=== PATIENT | male | born 1945 | race Caucasian/White ===

== ENCOUNTER 2022-06-12 10:22 | Inpatient (IN) | payer MEDICARE, BC, SELFPAY ==
[2022-06-12] VITALS (54 sets, daily range): BP systolic 91–133; BP diastolic 57–102; PULSE 48–155; RESP 14–35; TEMP 36.3–36.5; O2SAT 92–98
--- NOTE | 2022-06-12 10:30 | DI.RAD_ITS ---
Exam(s) XR PORTABLE CHEST AP EXAM: XR PORTABLE CHEST AP CLINICAL HISTORY: chest pain. TECHNIQUE: 2D digital imaging was performed. COMPARISON: No exams were available for comparison FINDINGS: Single AP portable view. Heart size is again noted to be enlarged. The mediastinum is not widened. There is a right pleural effusion noted which is unchanged in size from 06/12/2022. This is small-mo derate size. No airspace pulmonary edema. Mild increased markings in the medial right lung base are unchanged. Accessory azygos lobe again noted. IMPRESSION: Cardiomegaly. Small-moderate size right pleural effusion is unchanged from 06/12/2022.Possibly relat ed to congestive heart failure although there does not appear to be airspace pulmonary edema. Mild i ncreased markings in the medial right lung base adjacent to the heart border again noted. Cannot exclude pathologies other than CHF here. DATA REPOSITORY: RADIATION DOSE DELIVERED:
--- NOTE | 2022-06-12 10:30 | RT.EKG_ITS ---
APPROVED REPORT Exam: Resting ECG Reason for Exam: sob Patient Location: E HR:150 bpm ECG Measurements Heart Rate 150 AXIS MD [id number] P [id number] QRSd 84 QRS 0 QT 307 T [id number] QTc 485 Conclusion Atrial fibrillation with rapid V-rate...A-rate 359
[2022-06-12 10:54] LABS: Abs Immature Grans 0.03 10^3/uL (0.0-0.06); Absolute Basophil Count 0.07 10^3/uL (0.0-0.2); Absolute Eosinophil Count 0.07 10^3/uL (0.0-0.7); Absolute Lymphocyte Count 1.56 10^3/uL (1.2-3.4); Absolute Monocyte Count 0.85 10^3/uL (0.1-0.8); Absolute Neutrophil Count 4.22 10^3/uL (1.2-6.7); HCT 47.9 % (40.0-50.0); HGB 16.1 g/dL (13.5-17.5); Immature Grans % 0.4; Lymphocytes % 22.9; MCHC 33.6 % (32.0-36.0); MCV 92 fL (80-95); MPV 10.1 fL (8.0-11.0); Monocytes % 12.5; Neutrophils % 62.2; Platelet Count 212 10^3/uL (130-400); RDW 13.3 % (11.8-14.1); RDW-SD 45.2 fL
[2022-06-12 11:16] LABS: ALT 137 U/L (16-63); AST 69 U/L (15-37); Albumin 3.4 g/dL (3.4-5.0); Alkaline Phosphatase 254 U/L (46-116); BUN 24 mg/dL (7-18); Bilirubin, Total 1.3 mg/dL (0.2-1.0); CREATININE 1.4 mg/dL (0.70-1.30); Calcium 8.9 mg/dL (8.5-10.1); Chloride 101 mmol/L (98-107); Estimated GFR 52.41 (mL/min/1.73m2); Glucose 109 mg/dL (74-106); Magnesium 1.9 mg/dL (1.8-2.4); NT-proBNP 8221 pg/mL (<300); Potassium 4.7 mmol/L (3.5-5.1); Sodium 134 mmol/L (136-145); Total Protein 7.3 g/dL (6.4-8.2)
[2022-06-12 11:18] LABS: Troponin I 71 ng/L (<or=60)
--- NOTE | 2022-06-12 11:21 | DI.VRAD_ITS ---
PROCEDURE INFORMATION: Exam: XR Chest Exam date and time: 06/12/2022 10:38 AM Age: 77 years old Clinical indication: Shortness of breath TECHNIQUE: Imaging protocol: Radiologic exam of the chest. Views: 1 view. COMPARISON: No relevant prior studies available. FINDINGS: Lungs: Mild venous congestion Pleural spaces: Small right pleural effusion Heart/Mediastinum: Cardiomegaly Bones/joints: Unremarkable. IMPRESSION: Mild congestive heart failure Dictated and Authenticated by: Odette Hernandez MD. Ordering:DENIA Almeida MD
--- NOTE | 2022-06-12 11:38 | ED.GENADUL_ITS ---
Discharge Plan Disposition Patient Disposition: [facility] INPATIENT Condition: Serious Discharge Details Clinical Impression: Atrial fibrillation with rapid ventricular response, Acute CHF (congestive heart failure) Primary Care Provider: None,None ED Provider: Juan Pablo Ortega Medical Decision Making 1135 --77-year-old male here with dyspnea on exertion and orthopnea, progressive bilateral lower extremity edema over the past 3 to 4 weeks. Patient is tachyca rdic and irregularly irregular on the satellite project site monitor which I interpreted as likely atrial fibrillation. EKG was reviewed and interpreted by me: A. fib with RVR 150 bpm, please see report. Labs reviewed: Creatinine is slightly elevated at 1.4, normal GFR, BNP is elevated at 8200 which is consistent with acute CHF exacerbation, he does have mild elevation of troponin. Plan to treat atrial fibrillation with RVR with diltiazem 50 mg IV push followed by infusion. I will initiate IV diuresis with furosemide 20 mg IV. Chest x-ray was reviewed and interpreted by radiology: Mild congestive heart failure. I called and spoke with the on-call hospitalist, Dr. Manrique, discussed ED presentation and course, he will admit the patient. Care transition at time of admission. Lab Data Lab results reviewed: Yes I reviewed the patient's lab results. Labs: Laboratory Tests Range/Units 06/12/22 06/12/22 10:45 10:45 WBC (4.4-10.8) 10^3/uL 6.80 RBC (4.36-5.78) 10^6/uL 5.20 Hgb (13.5-17.5) g/dL 16.1 Hct (40.0-50.0) % 47.9 MCV (80-95) fL 92 MCH (27.0-33.0) pg 31.0 MCHC (32.0-36.0) % 33.6 RDW (11.8-14.1) % 13.3 Plt Count (130-400) 10^3/uL 212 MPV (8.0-11.0) fL 10.1 Immature Gran % 0.4 Neutrophils % 62.2 Lymphocytes % 22.9 Monocytes % 12.5 Eosinophils % 1.0 Basophils % 1.0 Nucleated RBC % (0.0-0.3) % 0.0 Absolute Neutrophils (1.2-6.7) 10^3/uL 4.22 Absolute Lymphocytes (1.2-3.4) 10^3/uL 1.56 Absolute Monocytes (0.1-0.8) 10^3/uL 0.85 H Absolute Eosinophils (0.0-0.7) 10^3/uL 0.07 Absolute Basophils (0.0-0.2) 10^3/uL 0.07 Sodium (136-145) mmol/L 134 L Potassium (3.5-5.1) mmol/L 4.7 Chloride (98-107) mmol/L 101 Carbon Dioxide (21.0-32.0) mmol/L 22.0 Anion Gap (3-11) mmol/L 11.0 BUN (7-18) mg/dL 24 H Creatinine (0.70-1.30) mg/dL 1.4 H Est GFR (CKD-EPI 2020) (mL/min/1.73m2) 52.41 Glucose (74-106) mg/dL 109 H Calcium (8.5-10.1) mg/dL 8.9 Magnesium (1.8-2.4) mg/dL 1.9 Total Bilirubin (0.2-1.0) mg/dL 1.3 H AST (15-37) U/L 69 H ALT (16-63) U/L 137 H Alkaline Phosphatase (46-116) U/L 254 H Troponin I (<or=60) ng/L 71 H* NT-Pro-B Natriuret Pep (<300) pg/mL 8221 H Total Protein (6.4-8.2) g/dL 7.3 Albumin (3.4-5.0) g/dL 3.4 HPI General Mode of arrival: ambulatory . Date/Time Provider Initiated Documentation: 06/12/22 10:42 . Limitations to Documentation: no limitations . Information obtained by: patient . HPI Narrative: 77-year-old relatively healthy male here with chief complaint of shortness of breath. Patient notes shortness of breath with dyspnea on exertion worsening over the past 3 weeks. Symptoms are now moderate worse with any exertion. He also notes shortness of breath when lying flat at night. He states he started developed leg swelling about 4 weeks ago and this has persisted and worsened. He has no history of kidney trouble or CHF. He denies palpitations. He has no chest pain. General Stated Complaint: RespSymp TAYLOR: 2 Review of Systems All systems reviewed & are unremarkable except as noted in HPI and below Constitutional Constitutional: Denies fever(s) Cardiovascular Cardiovascular: Reports as per HPI PFSH All Active Problems (Updated 06/12/22 @ 11:43 by Juan Pablo Ortega MD) Atrial fibrillation with rapid ventricular response (Acute) Acute CHF (congestive heart failure) (Acute) Social History Smoking risk assessment performed?: No Exam Const General: cooperative and no acute distress HENMT Mouth: moist mucous membranes Eyes Conjunctivae: normal conjunctivae Sclera: normal sclerae Neck Neck: trachea midline and supple Resp Auscultation: clear to auscultation bilaterally, no rales, no rhonchi and no wheezes Cardio Rate: tachycardic Rhythm: abnormal rhythm Heart Sounds: no murmurs GI Palpation: soft, not firm, no guarding, no masses, not rigid and nontender Skin General skin exam: no rashes or lesions noted Neuro General: patient alert, patient awake, patient oriented x3 and tone normal Extrem General: edema Laterality: bilateral (2+ pitting up to the knees) Psych Appearance: grossly normal Mental Status: mental status grossly normal Speech and Movement: speech and movement normal Course Vital Signs Vital signs: Vital Signs Temperature 36.5 C 06/12/22 10:39 Pulse 145 H 06/12/22 10:39 Respiratory Rate 31 H 06/12/22 10:39 Blood Pressure 132/79 06/12/22 10:39 Pulse Oximetry 97 06/12/22 10:39 Temperature 36.5 C 06/12/22 10:39 Temperature Source Temporal Artery Scan 06/12/22 10:39 Pulse 145 H 06/12/22 10:39 Respiratory Rate 31 H 06/12/22 10:39 Blood Pressure 132/79 06/12/22 10:39 Blood Pressure Position Sitting 06/12/22 10:39 Pulse Oximetry 97 06/12/22 10:39 Oxygen Delivery Method Room Air 06/12/22 10:39 Oxygen Flow Rate 0 06/12/22 10:39 Pain Level 0 06/12/22 10:39 Lab/Test Results Lab/Test Results: Laboratory Tests Range/Units 06/12/22 06/12/22 10:45 10:45 WBC (4.4-10.8) 10^3/uL 6.80 RBC (4.36-5.78) 10^6/uL 5.20 Hgb (13.5-17.5) g/dL 16.1 Hct (40.0-50.0) % 47.9 MCV (80-95) fL 92 MCH (27.0-33.0) pg 31.0 MCHC (32.0-36.0) % 33.6 RDW (11.8-14.1) % 13.3 Plt Count (130-400) 10^3/uL 212 MPV (8.0-11.0) fL 10.1 Immature Gran % 0.4 Neutrophils % 62.2 Lymphocytes % 22.9 Monocytes % 12.5 Eosinophils % 1.0 Basophils % 1.0 Nucleated RBC % (0.0-0.3) % 0.0 Absolute Neutrophils (1.2-6.7) 10^3/uL 4.22 Absolute Lymphocytes (1.2-3.4) 10^3/uL 1.56 Absolute Monocytes (0.1-0.8) 10^3/uL 0.85 H Absolute Eosinophils (0.0-0.7) 10^3/uL 0.07 Absolute Basophils (0.0-0.2) 10^3/uL 0.07 Sodium (136-145) mmol/L 134 L Potassium (3.5-5.1) mmol/L 4.7 Chloride (98-107) mmol/L 101 Carbon Dioxide (21.0-32.0) mmol/L 22.0 Anion Gap (3-11) mmol/L 11.0 BUN (7-18) mg/dL 24 H Creatinine (0.70-1.30) mg/dL 1.4 H Est GFR (CKD-EPI 2020) (mL/min/1.73m2) 52.41 Glucose (74-106) mg/dL 109 H Calcium (8.5-10.1) mg/dL 8.9 Magnesium (1.8-2.4) mg/dL 1.9 Total Bilirubin (0.2-1.0) mg/dL 1.3 H AST (15-37) U/L 69 H ALT (16-63) U/L 137 H Alkaline Phosphatase (46-116) U/L 254 H Troponin I (<or=60) ng/L 71 H* NT-Pro-B Natriuret Pep (<300) pg/mL 8221 H Total Protein (6.4-8.2) g/dL 7.3 Albumin (3.4-5.0) g/dL 3.4 Critical Care Time Critical Care Time Critical Care Time: Yes Total Critical Care Time: 40 Attestation: I spent greater than 40 minutes addressing this patient's immediate life threats. Please see MDM section of note. This time was spent engaged in work directly related to the patient's care, exclusive of separate procedures, and failure to initiate these interventions would have likely resulted in clinically significant or life threatening deterioration in the patient's condition.
[2022-06-12] MEDS: dilTIAZem 25 MG/5 ML VIAL 15 MG IVP (11:57)
[2022-06-12] MEDS: Furosemide 20 MG/2 ML VIAL IVP (11:59)
[2022-06-12] MEDS: dilTIAZem 30 MG TAB PO (14:35)
[2022-06-12 14:42] LABS: Source Nasal/Nares
[2022-06-12 15:13] LABS: Troponin I 69 ng/L (<or=60)
[2022-06-12 15:39] LABS: COVID-19 PCR Negative (Negative)
--- NOTE | 2022-06-12 15:50 | W.PM.HP.N ---
Date of service: 06/12/22 Time of Service: 15:51 Assessment and Plan Assessment and plan (1) Atrial fibrillation with rapid ventricular response: Status: Acute Assessment and plan: No known previous history of afib. Mild troponin elevation d/t demand ischemia most likely from RVR. Responded to IV cardizem push. Now on cardizem 60mg TID. Telemetry monitoring. Echocardiogram ordered. Therapuetic lovenox. Will see if eliquis is covered by his insurance. (2) Acute CHF (congestive heart failure): Status: Acute Assessment and plan: Elevated BNP. Echocardiogram ordered. Lasix 40mg IV BID. Monitor renal function while on diuretic. Low Na diet. (3) Renal insufficiency: Status: Chronic Assessment and plan: His baseline creatinine is not known. Monitor. (4) Discharge planning issues: Status: Acute Assessment and plan: Normally would discharge with a 30 day threat monitoring analyst. However, he will be leaving for [place] where he will spend the winter. He will need to establish with a PCP there and then discuss outpt cardiac monitoring. History of Present Illness History of Present Illness Chief Complaint: Shortness of breath. Narrative: This is a 77 yo male with no chronic medical problems who does not currently have a PCP either in this area where he spends 6 months of the year or in [place] where he spends the other 6 months. He presented with c/o SOA and TOURE over the last 3 weeks. He also endorsed orthopnea. He noted bilateral lower extremity swelling appx 4 weeks prior to presentation. No palpitations, CP, cough, fever/chills. No h/o CHF, renal disease, CAD. ED work up: EKG with afib with ventricular rate into the 150's. Creatinine 1.4. BNP 8200. WBC count normal. Normal K and Mg. CXR with mild congestive changes. He was given 15mg IV diltiazem with notable decrease in HR. He was also administered 20mg IV lasix. Admitted for further monitoring and evaluation. Review of Systems All systems reviewed & are unremarkable except as noted in HPI and below PFSH All Active Problems (Updated 06/12/22 @ 16:24 by Vinicio Manrique MD) Discharge planning issues (Acute) Renal insufficiency (Chronic) Atrial fibrillation with rapid ventricular response (Acute) Acute CHF (congestive heart failure) (Acute) Social History Smoking/Tobacco Use Status: Never Smoking risk assessment performed?: Yes Drug use: Occasionally Substance use type: marijuana Details: not for the last 30 days Do you feel safe at home: Yes Do you feel safe in your relationship?: Yes Exam Narrative Exam Narrative: Pleasant, jovial male. Lying in bed. Conversant. Const General: cooperative and no acute distress Nutritional Appearance: obese Orientation: alert and oriented x3 Eyes General: appearance normal, both eyes and all related structures Sclera: sclerae normal Neck Neck: normal visual inspection, full ROM and no JVD Resp Effort & Inspection: normal respiratory effort and able to speak in complete sentences Auscultation: clear to auscultation bilaterally Cardio Rate: tachycardic Rhythm: abnormal rhythm irregularly irregular GI Palpation: soft and nontender Auscultation: normal bowel sounds Skin General skin exam: no rashes or lesions noted Neuro General: no focal motor deficits Cognition: normal cognition Speech: speech normal Extrem General: no calf tenderness and edema Laterality: bilateral (2+ from below the knees into feet. ) Psych Appearance: grossly normal Mental Status: mental status grossly normal Mood: congruent mood Affect: normal affect Results Labs Result diagrams: 06/12/22 10:45 06/12/22 10:45 Labs: Laboratory Results - last 24 hr 06/12/22 06/12/22 06/12/22 10:45 10:45 13:07 WBC 6.80 RBC 5.20 Hgb 16.1 Hct 47.9 MCV 92 MCH 31.0 MCHC 33.6 RDW 13.3 Plt Count 212 MPV 10.1 Immature Gran % 0.4 Neutrophils % 62.2 Lymphocytes % 22.9 Monocytes % 12.5 Eosinophils % 1.0 Basophils % 1.0 Nucleated RBC % 0.0 Absolute Neutrophils 4.22 Absolute Lymphocytes 1.56 Absolute Monocytes 0.85 H Absolute Eosinophils 0.07 Absolute Basophils 0.07 Sodium 134 L Potassium 4.7 Chloride 101 Carbon Dioxide 22.0 Anion Gap 11.0 BUN 24 H Creatinine 1.4 H Est GFR (CKD-EPI 2020) 52.41 Glucose 109 H Calcium 8.9 Magnesium 1.9 Total Bilirubin 1.3 H AST 69 H ALT 137 H Alkaline Phosphatase 254 H Troponin I 71 H* NT-Pro-B Natriuret Pep 8221 H Total Protein 7.3 Albumin 3.4 COVID-19 Source Nasal/Nares SARS-CoV-2 (PCR) Negative 06/12/22 14:49 WBC RBC Hgb Hct MCV MCH MCHC RDW Plt Count MPV Immature Gran % Neutrophils % Lymphocytes % Monocytes % Eosinophils % Basophils % Nucleated RBC % Absolute Neutrophils Absolute Lymphocytes Absolute Monocytes Absolute Eosinophils Absolute Basophils Sodium Potassium Chloride Carbon Dioxide Anion Gap BUN Creatinine Est GFR (CKD-EPI 2020) Glucose Calcium Magnesium Total Bilirubin AST ALT Alkaline Phosphatase Troponin I 69 H* NT-Pro-B Natriuret Pep Total Protein Albumin COVID-19 Source SARS-CoV-2 (PCR) Last Vital Signs Temp 36.3 C L 06/12/22 13:40 Pulse 113 H 06/12/22 13:40 Resp 18 06/12/22 13:40 BP 103/73 06/12/22 13:40 Pulse Ox 98 06/12/22 13:40
[2022-06-12] MEDS: Furosemide 40 MG/4 ML VIAL IVP (16:03)
[2022-06-12] MEDS: dilTIAZem 30 MG TAB 60 MG PO (20:37)
[2022-06-12] MEDS: Enoxaparin 40 MG/0.4 ML SYR SC (20:37)
[2022-06-12] MEDS: Normal Saline Flush 10 ML SYR IVP (20:38)
[2022-06-12] MEDS: Magnesium Oxide 400 MG TAB PO (22:49)
[2022-06-13] VITALS (62 sets, daily range): BP systolic 101–126; BP diastolic 73–92; PULSE 84–126; RESP 10–35; TEMP 36.5; O2SAT 97
[2022-06-13 06:51] LABS: ALT 102 U/L (16-63); AST 51 U/L (15-37); Alkaline Phosphatase 199 U/L (46-116); BUN 25 mg/dL (7-18); Bilirubin, Total 1.1 mg/dL (0.2-1.0); CREATININE 1.3 mg/dL (0.70-1.30); Calcium 8.5 mg/dL (8.5-10.1); Chloride 104 mmol/L (98-107); Estimated GFR 57.29 (mL/min/1.73m2); Glucose 96 mg/dL (74-106); Potassium 3.8 mmol/L (3.5-5.1); Sodium 140 mmol/L (136-145); Total Protein 6.4 g/dL (6.4-8.2)
[2022-06-13] MEDS: Enoxaparin 40 MG/0.4 ML SYR SC (07:49)
[2022-06-13] MEDS: Furosemide 40 MG/4 ML VIAL IVP ×2 (07:49→16:04)
[2022-06-13] MEDS: dilTIAZem CD 180 MG CAPCR PO (07:50)
--- NOTE | 2022-06-13 09:06 | INITIAL_ITS ---
- If Service Date Differs Date of service: 06/13/22 Time of Service: 09:06 Care Management Initial Assess REASON FOR HOSPITALIZATION:: Atrial fibrillation with rapid ventricular response,Acute CHF PAST MEDICAL HISTORY/PAST SURGICAL HISTORY:: All Active Problems (Updated 06/12/22 @ 16:24 by Vinicio Manrique MD). Discharge planning issues (Acute). Renal insufficiency (Chronic). Atrial fibrillation with rapid ventricular response (Acute). Acute CHF (congestive heart failure) (Acute) PREVIOUS FUNCTIONAL STATUS/SOCIAL/FAMILY SUPPORTS:: Jaylen lives in [place] with his Lisandra. He lives in [place] during the summer months and travels during the winter. He is all packed and ready to travel to [place] and is planning on leaving town as soon as he discharges. Jaylen does't have a PCP locally or in [place]. He is seeking guidance from his friends in [place], who recommend he Establish his medical care in [place]. CURRENT FUNCTIONAL STATUS:: Jaylen was lying in bed when CM met with him. He is alert, oriented and able to engage in conversation. He is planning on traveling to [place] after he's discharged and is unable to stay in [place] for follow up appoitments. He will let [facility] know where to send his records when he connects with providers in the area. ADVANCE DIRECTIVES:: None on file, will offer forms. Has patient been provided with info about the portal/API?: Yes Did the patient sign up for the portal?: No CODE STATUS:: Full Code INSURANCE COVERAGE / FINANCIAL ISSUES:: Medicare CURRENT HOME/COMMUNITY SERVICES/EQUIPMENT:: None PRIMARY CARE PHYSICIAN:: No local. POTENTIAL DISCHARGE NEEDS:: Recommend: Follow up with Tdoc, Outpatient ekg monitor tech and close community follow up. PATIENT/FAMILY EDUCATION NEEDS:: Review discharge instructions, limitations, medications and plan to follow up with community providers. Discuss ask me three. TRANSPORTATION:: Via Private vehicle with family. PLAN:: Jaylen will discharge home via private vehicle with his when medically ready. Per Jaylen, he is all packed and ready to travel to [place] for the winter. He will notify [facility] when he connects with a doctor in the area. Jaylen is new to [facility]. CM is checking on the cost. CM will continue to follow.
[2022-06-13] MEDS: Perflutren Lipid Microspheres 1.5 ML VIAL IVP (12:08)
[2022-06-13] MEDS: Normal Saline Flush 10 ML SYR IVP (16:05)
--- NOTE | 2022-06-13 16:09 | W.PM.PROGNOT ---
Date of Service Date of service: 06/13/22 Time of Service: 16:09 Assessment and Plan Assessment and plan (1) Atrial fibrillation with rapid ventricular response: Status: Acute Assessment and plan: No known previous history of afib. Mild troponin elevation d/t demand ischemia most likely from RVR vs recent coronary event. s/p IV cardizem, then short-acting cardizem Now on Cardizem CD; increase in AM to 240mg daily. Eliquis 5mg BID for AC. Telemetry monitoring. (2) Acute CHF (congestive heart failure): Status: Acute Assessment and plan: Echocardiogram shows an EF of 20-25% with global LV hypokinesis. Cannot r/o significant aortic stenosis. MPI nuc med stress test ordered. IV lasix. Low Na diet. (3) Renal insufficiency: Status: Chronic Assessment and plan: His baseline creatinine is not known. Creatinine on admission 1.4. Now 1.3. (4) Discharge planning issues: Status: Acute Assessment and plan: No PCP for follow up. Subjective Subjective Patient reports: no new complaints, tolerating a regular diet and afebrile; denies shortness of breath Interval history since last seen: No CP. He denies palpitations. Exam Narrative Exam Narrative: Pleasant, jovial male. Lying in bed. Conversant. Const General: cooperative and no acute distress Nutritional Appearance: obese Orientation: alert and oriented x3 Eyes General: appearance normal, both eyes and all related structures Sclera: sclerae normal Neck Neck: normal visual inspection, full ROM and no JVD Resp Effort & Inspection: normal respiratory effort and able to speak in complete sentences Auscultation: clear to auscultation bilaterally Cardio Rate: tachycardic Rhythm: abnormal rhythm irregularly irregular GI Palpation: soft and nontender Auscultation: normal bowel sounds Skin General skin exam: no rashes or lesions noted Neuro General: no focal motor deficits Cognition: normal cognition Speech: speech normal Extrem General: no calf tenderness and edema Laterality: bilateral (2+ from below the knees into feet. ) Psych Appearance: grossly normal Mental Status: mental status grossly normal Mood: congruent mood Affect: normal affect Objective Last Vital Signs Temp 36.5 C 06/13/22 04:05 Pulse 99 H 06/13/22 16:00 Resp 14 06/13/22 14:20 BP 126/83 06/13/22 16:00 Pulse Ox 97 06/13/22 16:00 Laboratory Results - last 24 hr 06/13/22 05:19 Sodium 140 Potassium 3.8 Chloride 104 Carbon Dioxide 26.0 Anion Gap 10.0 BUN 25 H Creatinine 1.3 Est GFR (CKD-EPI 2020) 57.29 Glucose 96 Calcium 8.5 Total Bilirubin 1.1 H AST 51 H ALT 102 H Alkaline Phosphatase 199 H Total Protein 6.4 Albumin 3.0 L
[2022-06-13] MEDS: dilTIAZem 60 MG TAB PO (17:09)
--- NOTE | 2022-06-13 19:15 | DI.US_ITS ---
APPROVED REPORT EXAM: Comprehensive 2D, Doppler, and color-flow Echocardiogram Patient Location: In-Patient Room/Bed: [id number] [employer] Good[employer] Tester: Juliane Aparicio RDCS (AE) Indications: New onset A Fib with CHF Echo Enhancing Agent Indication: Endocardial border delineation Agent(s) / Amount(s) Used: Definity 3.0 cc Other Information Study Quality: Adequate Conclusion Normal left ventricular wall thickness and chamber size. Estimated ejection fraction is 20 to 25%. There is global hypokinesis, no segmental wall motion abnormalities The right ventricle appears mildly dilated and hypocontractile The left atrium is mildly dilated. Right atrial size is normal Aortic valve is sclerotic. Number of leaflets cannot be accurately determined. There is no aortic r egurgitation. Peak gradient is 25, mean is 17 mmHg. There is probable severe aortic stenosis Mitral annular calcification. Moderate mitral regurgitation Normal tricuspid valve with trace to mild regurgitation. Estimated right ventricular systolic pressu re is 32 mmHg Wall motion Left Ventricle The left ventricle is normal size. Left ventricular systolic function is severely decreased. Definity microbubble contrast injection was given. There is normal left ventricular wall thickness. There is global hypokinesis of the left ventricle. There is no ventricular septal defect visualized. LVEF is 2 0-25%. Right Ventricle Right ventricle is mildly dilated. Right ventricle is moderately hypokinetic. Atria Left atrium is mildly dilated. The right atrium size is normal. The interatrial septum is intact with no evidence for an atrial septal defect. Aortic Valve Aortic valve is calcified. Number of aortic valve leaflets could not be assessed. Hemodynamically sig nificant valvular aortic stenosis cannot be excluded. Low flow-low gradien is present. Peak aortic va lve gradient is 24.5mmHg. Highest mean aortic valve gradient is 16.9mmHg. Calculated ELIZABETH by the vinay nuity equation is.91_cm2. No aortic regurgitation is present. Mitral Valve There is mitral annular calcification. No evidence of mitral valve stenosis. Moderate mitral regurgit ation. Tricuspid Valve The tricuspid valve is normal in structure. There is no tricuspid valve stenosis. Trace to mild tricu spid regurgitation. Pulmonic Valve The pulmonary valve is normal in structure. There is no pulmonic valvular stenosis. There is no pulmo niyah valvular regurgitation. Great Vessels The aortic root is normal in size. Ascending aorta is not well visualized. Aortic arch is not well vi sualized. The IVC collapses <50% with inspiration. Pericardium There is no pericardial effusion. 2D Dimensions IVSD d PLAX 1.05 cm M: 0.6-1.2 LV Vol A2C d MOD 191.3 mL LVPW d PLAX 1.03 cm M: 0.6 - 1.2 LV Vol A4C d MOD 171.9 mL LVID d PLAX 4.65 cm M: 4.2 - 5.8 LA vol/ BSA A4C s A-L 35.3 mL/m2 LVDs 4.20 cm M: 2.5 - 4.0 LA Area A4C s MOD 24.77 cm2 Ao Root d 3.02 cm M: 3.1 - 3.7 LV EF A4C MOD 26.1 % RA Area A4C 20.94 cm2 LV EF A2C MOD 28.5 % RA Vol/ BSA A4C s A-L 27.7 mL/m2 LV EF Biplane MOD 28.4 % LV EF Teichholz 19.8 % SV 51.91 mL LVEF (Osborne's) 28.43 % M: 52 - 72 SV Index 23.01 mL/m2 LV Volume 131.77 mL M: 62 - 150 LV Volume Index 58.56 mL/m2 M: 34 - 74 LV Vol Biplane MOD 182.6 mL FS 8.95 % M-Mode TAPSE 0.79 cm (M/F) >1.7 LV Diastology MV E' medial 0.077 (>0.07 m/s) MV E Vmax 1.29 (0.4-1.3 m/s) LV E/e MED 16.70 (<14) MV E' lateral 0.103 (>0.1 m/s) LV E/e LAT 12.55 (<14) MV E/E' medial 16.71 MV E/E' lateral 12.57 Aortic Valve LVOT Area 3.67 cm2 AoV Area Vmax 0.91 cm2 LVOT Vmax 0.61 m/s AoV Area/ BSA (Vmax) 0.40 cm2/m2 LVOT Mean Varinder. 0.40 m/s ELIZABETH Mean Varinder. 0.74 cm2 LVOT Peak Grad 1.5 mmHg ELIZABETH Mean Varinder. Index 0.33 cm2/m2 LVOT Mean Grad 0.7 mmHg LVOT VTI 0.092 m LVOT Diam s 2.15 cm AoV Vmax 2.48 m/s Velocity Ratio 0.24 AoV Mean Varinder. 1.97 m/s AoV Peak Grad 24.5 mmHg LVOT SV 33.59 mL AoV Mean Grad 16.9 mmHg AoV VTI 0.413 m AoV Area VTI 0.81 cm2 AoV Area/ BSA (VTI) 0.36 cm/m2 Mitral Valve MV DT 131 (160-240 msec) MR Vmax 4.40 m/s MV PHT 38 msec MR VTI 1.087 m MV Area PHT 5.79 cm2 MR Peak Grad 77.4 mmHg MV VTI 0.215 m MR Mean Grad 51.0 mmHg MV Area VTI 1.56 (4.0-6.0 cm2) Pulmonary Valve PV Vmax 0.95 (0.5-1.5 m/s) RVOT Peak Gr. 1.03 mmHg PV Peak Grad 3.6 mmHg RVOT Mean Gr. 0.50 mmHg PV Mean Grad 1.6 mmHg RVOT VTI 0.080 m PV VTI 0.150 m RVOT Vmax 0.51 m/s Tricuspid Valve TR Peak Grad 24.1 mmHg TR Vmax 2.46 m/s RA Pressure 8.00 mmHg RVSP (TR) 32.2 mmHg
[2022-06-13] MEDS: Apixaban 5 MG TAB PO (19:28)
[2022-06-13] MEDS: Magnesium Oxide 400 MG TAB PO (22:26)
[2022-06-14] VITALS (18 sets, daily range): BP systolic 111–121; BP diastolic 84–91; PULSE 74–123; RESP 17–24; TEMP 36.3–36.8; O2SAT 95–97
--- NOTE | 2022-06-14 | DI.NM_ITS ---
APPROVED REPORT Exam: Pharmacologic paired w/ low level exercise Patient Location: In-Patient Room/Bed: 221 Ordering Provider:DAMON PAGE, Contact Number: BMI: 34.57 Baseline Rhythm: Atrial Fibrillation w/ VEBS, tachycardic Indications: GLOBAL LEFT VENTRICULAR HYPOKINESIS, NEW A-FIB/CHF Medical History Medical History: Recent diagnosis of AFIB w/ RVR and Acute CHF (EF 20-25%) Cardiac Medications: No cardiac medications prior to this admission Allergies: No known drug allergies Cardiac Risk Factors: FHX of CAD, HTN, Smoking (former), Obesity Previous Cardiac Procedures: None Pretest Chest Pain Characteristics: No chest pain Exercise History: Indeterminate Physical Disabilities: None Lung Sounds: Clear to auscultation Heart Sounds: Irregular Stress Test Details Test: Pharmacologic stress was paired with low level exercise. Reason for pharmacologic stress test: physical limitation. Nuclear Acquisition: Rest Tc-99m/Stress Tc-99m 1 day Rest Isotope: Tc-99m Sestamibi. Dose: 10.0 Date: 06/14/2022 Injection Time: 0930 Stress Isotope: Tc-99m Sestamibi. Dose: 32.0 Date: 06/14/2022 Injection Time: 1120 HR Resting HR Supine: 100 bpm Max Heart Rate (APMHR): 145.002017 bpm Resting HR Standin bpm Target HR (85% APMHR): 123.157225 bpm Max HR Achieved: 162 bpm % of APMHR: 111.72 Recovery HR: 111 bpm BP Resting BP Supine: 120/72 mmHg Resting BP Standin/72 mmHg Max BP: 128/68 mmHg Recovery BP: 120/78 mmHg ECG Resting ECG: Atrial Fibrillation Ectopy: VEBs Stress ECG: Atrial Fibrillation ST Change: No significant ST segment changes noted Arrhythmia: VEBs Recovery ECG: Atrial Fibrillation Recovery ST Change: No significant ST segment changes noted Recovery Arrhythmia: VEBs Clinical Stress Symptoms: Dyspnea Rate Pressure Product: [id number] Stress ECG Conclusion 1. Resting electrocardiogram showed atrial fibrillation, poor R wave progression, left ventricular hy pertrophy with repolarization abnormalities 2. Heart rate was elevated at rest. Accelerated heart rate response to exercise. Patient achieved g reater than 100% of predicted heart rate for age 3. Testing was performed using a combination of low-level exercise and pharmacologic stress with rega denoson 4. The electrocardiographic portion of the test did not demonstrate any evidence of myocardial ischem ia 5. See MPI report Stress Test Summary STAGE HR BP SpO2 Symptoms NOTES Supine 100 120/72 Standing 113 112/72 1 min post Lexiscan injection 152 128/68 3 min post Lexiscan injection 146 124/78 6 min post Lexiscan injection 111 120/78 Patient walked on treadmill at 0.6-0.8 mph and 0% grade while receiving lexiscan injection. MPI Conclusion Myocardial perfusion does not demonstrate any areas of ischemia or prior infarction EF is 16%. LV is dilated and diffusely hypocontractile Radiologist Interpretation Radiologist Interpretation by: Jaylen Montes MD Interpretation Date/Time: 06/14/2022 16:57:51
--- NOTE | 2022-06-14 05:05 | NUR.NOTE ---
Nursing Note: Patient is resting comfortably, No apparent distress, requested that he not be awakened for vital signs overnight. Continues on Surgery Assistant. Provided information sheets on Afib/CHF/Cardizem/Eliquis/and Lasix
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
[2022-06-14] MEDS: Furosemide 40 MG/4 ML VIAL IVP (09:15)
[2022-06-14] MEDS: Aspirin 81 MG CHEW PO (09:16)
[2022-06-14] MEDS: dilTIAZem CD 120 MG CAPCR 240 MG PO (09:16)
[2022-06-14] MEDS: Apixaban 5 MG TAB PO ×2 (09:16→18:13)
[2022-06-14] MEDS: Normal Saline Flush 10 ML SYR IVP (09:17)
[2022-06-14] MEDS: Potassium Chloride 20 MEQ TABCR PO (09:27)
[2022-06-14 10:11] LABS: Anion Gap 7.7 mmol/L (3-11); BUN 21 mg/dL (7-18); CO2 31.3 mmol/L (21.0-32.0); CREATININE 1.4 mg/dL (0.70-1.30); Calcium 8.8 mg/dL (8.5-10.1); Chloride 101 mmol/L (98-107); Estimated GFR 52.41 (mL/min/1.73m2); Glucose 117 mg/dL (74-106); Potassium 3.4 mmol/L (3.5-5.1); Sodium 140 mmol/L (136-145)
[2022-06-14] MEDS: Regadenoson 0.4 MG/5 ML SYR IVP (11:01)
--- NOTE | 2022-06-14 17:35 | W.PM.DS.N ---
Date of service: 06/14/22 Time of Service: 17:36 DS: Diagnosis Discharge Diagnosis (1) Atrial fibrillation with rapid ventricular response: Status: Acute (2) Acute CHF (congestive heart failure): Status: Acute (3) Renal insufficiency: Status: Chronic (4) Discharge planning issues: Status: Deleted Discharge Plan Disposition Patient Disposition: HOME Condition: Improving Discharge Details Reason For Visit: Atrial fibrillation, CHF Admit Date/Time: 06/12/22 11:42 Admit Provider: Vinicio Manrique Attending Provider: Vinicio Manrique Primary Care Provider: None,None Hospital Course Hospital Course: This is a 77 yo male with no chronic medical problems who does not currently have a PCP either in this area where he spends 6 months of the year or in [place] where he spends the other 6 months.? He presented with c/o SOA and TOURE over the last 3 weeks.? He also endorsed orthopnea.? He noted bilateral lower extremity swelling appx 4 weeks prior to presentation. No palpitations, CP, cough, fever/chills.? No h/o CHF, renal disease, CAD. ED work up: EKG with afib with ventricular rate into the 150's. Creatinine 1.4.? BNP 8200. WBC count normal. Normal K and Mg.? CXR with mild congestive changes. He was given 15mg IV diltiazem with notable decrease in HR.? He was also administered 20mg IV lasix.? Admitted for further monitoring and evaluation. He needs to establish with a PCP in [place] where he lives during 6 months out of the years. I suggest cardiac rehab. Discuss initiating an ARB and possibly Jardiance when established with a PCP. Home Meds and New Rx's Prescriptions: No Action diltiazem HCl 360 mg capsule,extended release 24 hr 360 mg PO DAILY Qty: 90 0RF Eliquis 5 mg tablet 5 mg PO BID Qty: 180 0RF potassium chloride [Klor-Con M20] 20 mEq tablet,ER particles/crystals 20 meq PO DAILY Qty: 90 0RF torsemide 20 mg tablet 20 mg PO DAILY Qty: 90 0RF losartan 25 mg tablet 25 mg PO DAILY Qty: 90 0RF Discharge Instructions Instructions: A-fib (Atrial Fibrillation) (DC), Low-Sodium Diet (DC) Additional Instructions: Follow up within 1 week Activity:: low level activity only Equipment/Supplies:: No Equipment Needed Diet:: Heart healthy Discharge Data Discharge Date/Time-TO BE ENTERED AT DEPARTURE: 06/14/22 18:41 DS: Summary Time Spent with Patient providing and/or coordinating discharge services: Greater than 30 minutes Status at Discharge Functional status at discharge: independent ambulation Overall status at discharge: patient is progressing back to baseline Mental Status: mental status grossly normal Speech and Movement: speech and movement normal Mood: congruent mood Affect: normal affect Exam Narrative Exam Narrative: Pleasant, jovial male. Lying in bed. Conversant. Const General: cooperative and no acute distress Nutritional Appearance: obese Orientation: alert and oriented x3 Eyes General: appearance normal, both eyes and all related structures Sclera: sclerae normal Neck Neck: normal visual inspection, full ROM and no JVD Resp Effort & Inspection: normal respiratory effort and able to speak in complete sentences Auscultation: clear to auscultation bilaterally Cardio Rate: tachycardic Rhythm: abnormal rhythm irregularly irregular GI Palpation: soft and nontender Auscultation: normal bowel sounds Skin General skin exam: no rashes or lesions noted Neuro General: no focal motor deficits Cognition: normal cognition Speech: speech normal Extrem General: no calf tenderness and edema Laterality: bilateral (1+ from below the knees into feet. ) Psych Appearance: grossly normal Mental Status: mental status grossly normal Speech and Movement: speech and movement normal Mood: congruent mood Affect: normal affect DS: Data Vitals/I&O Vitals and I&O: Vital Signs Temperature 36.7 C 06/14/22 15:10 Temperature Source Temporal Artery Scan 06/14/22 15:10 Pulse 85 06/14/22 15:53 Pulse Rhythm Irregular 06/14/22 15:52 Pulse 107 H 06/14/22 16:00 Respiratory Rate 24 06/14/22 16:00 Respiratory Effort 06/14/22 15:52 Respiratory Depth Normal 06/14/22 15:52 Respiratory Pattern Tachypnea 06/14/22 15:52 Blood Pressure 121/89 06/14/22 15:16 Blood Pressure Mean 96 06/14/22 15:16 Blood Pressure Position Supine 06/12/22 16:45 Pulse Oximetry 97 06/14/22 15:16 Oxygen Delivery Method Room Air 06/14/22 08:46 Oxygen Flow Rate 0 06/14/22 08:46 Pain Level 0 06/14/22 08:46 Comment 06/14/22 01:30 Intake & Output 06/13/22 06/14/22 06/14/22 23:59 11:59 23:59 Intake Total 240 / 260 500 / 1140 640 / 1140 Output Total 900 / 4100 150 / 650 500 / 650 Balance -660 / -3840 350 / 490 140 / 490 Weight 109.4 kg Intake: Oral 240 / 240 500 / 1140 640 / 1140 Output: Urine 900 / 4100 150 / 650 500 / 650 Other: Urine Color Yellow Dark Cindy Pale Yellow Urine Appearance Clear Clear Clear Urine Odor Normal None None Comment x1, unwitnessed, unmeasured. Voided in toilet on med/surg. Not measured. Denies any urinary problems. Stool Size Moderate Stool Characteristics Soft Formed Voiding Methods Bedside Commode Data Completed and Pending Labs on day of discharge: Labs from last 24 hours 06/14/22 09:50 Sodium 140 Potassium 3.4 L Chloride 101 Carbon Dioxide 31.3 Anion Gap 7.7 BUN 21 H Creatinine 1.4 H Est GFR (CKD-EPI 2020) 52.41 Glucose 117 H Calcium 8.8 PFSH All Active Problems Renal insufficiency (Chronic) Atrial fibrillation with rapid ventricular response (Acute) Acute CHF (congestive heart failure) (Acute) Social History Smoking/Tobacco Use Status: Never Smoking risk assessment performed?: Yes Drug use: Occasionally Substance use type: marijuana Details: not for the last 30 days Do you feel safe at home: Yes Do you feel safe in your relationship?: Yes
--- NOTE | 2022-06-15 10:53 | CMDISCH_ITS ---
- If Service Date Differs Date of service: 06/15/22 Time of Service: 10:53 LACE Index Scoring Tool - Questions: Length of Stay (in days): 2 Acuity (Admit via E.D.?): Yes E.D. Visits: 1 - Answers: Total Score: 6 Risk of Readmission: Low Risk Care Management Discharge Reason for Hospitalization: Atrial fibrillation with rapid ventricular response,Acute CHF Discharge Plan: Jaylen is discharged home via private vehicle with family. RX's are printed and provided to Jaylen. Jaylen has a RX for Eliquis that was transmitted to [facility] in [place], $0 copay. Jaylen declines local Hospital Follow up appointment using T-Doc schedule. Per pt, he is packed and ready to travel to [place] and will establish care with a doctor in that area. He will let Medical Records or CM know where he would like his records sent, after he finds a provider in [place]. Patient/Family Education Needs: Review discharge instructions, limitations, medications and plan to schedule a hospital follow up in [place]. CM advised Jaylen that a follow up appointment locally using oncall provider scheduling is preferred, however Jaylen indicates that he is unable to schedule locally due to his travel schedule.
== END 2022-06-14 18:41 | disposition home or self-care (01) | DRG 309 ==
LOC: ER 13:26 → ICU 13:37
PROVIDERS: Admitting Provider Family Medicine; Emergency Provider Student in an Organized Health Care Education/Training Program; Visit Provider Family Medicine
DX: I48.91 Unspecified atrial fibrillation (principal); I24.8 Other forms of acute ischemic heart disease; I50.9 Heart failure, unspecified; N18.9 Chronic kidney disease, unspecified
CPT/HCPCS: 36415; 78452; 80048; 80053; 87635; 93005; 93306; 96374; 96375; 99284; 99285; C8929; J1650; 71045; 83735; 83880; 84484; 85025; 93010; 93017; 99223; 99233; 99239; J1940; J1941; J2785

== ENCOUNTER → 2023-05-08 19:51 | Outpatient (CLI) | payer MEDICARE, BC, SELFPAY ==
--- NOTE | 2023-05-08 09:45 | DI.RAD_ITS ---
Exam(s) XR HIP PELVIS ADULT BL EXAM: XR HIP PELVIS ADULT BL CLINICAL HISTORY: Bilateral hip pain M25.551 PAIN RT HIP M25.552 PAIN LEFT HIP. TECHNIQUE: 2D digital imaging was performed. COMPARISON: No exams were available for comparison FINDINGS: 3 views No evidence of pelvic nor hip fracture. However, there is advanced degenerative narrowing of both hi p joints with [id number] narrowing and degenerative subarticular cysts bilaterally. There is multilevel disc space narrowing in the partially visualized lumbar spine. SI joints appear unremarkable. 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 DATA REPOSITORY: RADIATION DOSE DELIVERED:
== END ==
PROVIDERS: PCP Family Medicine; Visit Provider Family Medicine
DX: M16.0 Bilateral primary osteoarthritis of hip (principal)
CPT/HCPCS: 73521

== ENCOUNTER 2025-03-25 18:11 | Inpatient (IN) | payer MEDICARE, BC, SELFPAY ==
[2025-03-25] VITALS (38 sets, daily range): BP systolic 93–125; BP diastolic 56–97; PULSE 92–156; RESP 13–25; TEMP 36.3–36.6; O2SAT 92–97
--- NOTE | 2025-03-25 18:00 | RT.EKG_ITS ---
APPROVED REPORT Exam: Resting ECG Reason for Exam: tachycardia Patient Location: E HR:139 bpm ECG Measurements Heart Rate 139 AXIS SC [id number] P [id number] QRSd 84 QRS 4 QT 315 T 132 QTc 487 Conclusion Atrial fibrillation with rapid V-rate...A-rate 388 Anterior infarct, old...Q >40mS, abnormal ST-T, V2-V5 Repolarization abnormality, prob rate related...ST dep, T neg, tachycardia
[2025-03-25 18:25] LABS: Abs Immature Grans 0.04 10^3/uL (0.0-0.06); HCT 45.0 % (40.0-50.0); HGB 15.2 g/dL (13.5-17.5); Immature Grans % 0.5 %; MCH 31.0 pg (27.0-33.0); MCHC 33.8 % (32.0-36.0); MCV 92 fL (80-95); MPV 10.1 fL (8.0-11.0); Platelet Count 246 10^3/uL (130-400); RBC 4.90 10^6/uL (4.36-5.78); RDW 13.6 % (11.8-14.1); RDW-SD 45.5 fL; WBC 8.03 10^3/uL (4.4-10.8)
--- NOTE | 2025-03-25 18:30 | RT.EKG_ITS ---
APPROVED REPORT Exam: Resting ECG Reason for Exam: afib Patient Location: E HR:91 bpm ECG Measurements Heart Rate 91 AXIS UT [id number] P [id number] QRSd 82 QRS 2 QT 394 T 124 QTc 484 Conclusion Atrial fibrillation...V-rate 74-111, irreg A-activity Anterior infarct, old...Q >40mS, abnormal ST-T, V2-V5 Nonspecific T abnormalities, lateral leads...T <-0.10mV, I aVL V5 V6 No STEMI
--- NOTE | 2025-03-25 18:30 | DI.RAD_ITS ---
Exam(s) XR PORTABLE CHEST AP EXAM: XR PORTABLE CHEST AP CLINICAL HISTORY: dyspnea TECHNIQUE: 2D digital imaging was performed. COMPARISON: CR,XR XR PORTABLE CHEST AP from 06/12/2022 FINDINGS: Exam is limited by suboptimal pulmonary inflation. Abdominal soft tissues partially obscure the lung bases. LUNGS: There is pulmonary vascular prominence and mildly increased interstitial markings which could indicate mild CHF. There is minimal blunting at the right costophrenic angle. This was seen on the previous exam and may be chronic. Azygos lobe, normal variant. HEART: Enlarged, unchanged. AORTA: Normal diameter. BONES: Unremarkable for age. Soft tissues: Unremarkable. IMPRESSION: Cardiomegaly and mild CHF. Basilar infiltrates are not excluded due to technique. DATA REPOSITORY: RADIATION DOSE DELIVERED:
[2025-03-25] MEDS: dilTIAZem 25 MG/5 ML VIAL 20 MG IVP (18:31)
--- NOTE | 2025-03-25 18:33 | W.ED.GENAD ---
Discharge Plan Disposition Patient Disposition: Admit to [facility] Condition: Stable Discharge Details Clinical Impression: Atrial fibrillation with rapid ventricular response, Elevated troponin Primary Care Provider: James Guzman ED Provider: Inocencio Martínez Home Meds and New Rx's Prescriptions: No Action diltiazem HCl 360 mg capsule,extended release 24 hr 360 mg PO DAILY Qty: 90 0RF dabigatran etexilate 150 mg capsule 150 mg PO DAILY losartan 25 mg tablet 50 mg PO DAILY HPI General Mode of arrival: EMS. Date/Time Provider Initiated Documentation: 03/25/25 18:18. Limitations to Documentation: no limitations. Information obtained by: patient. History of Present Illness 80 year old M presents to the emergency department with the chief complaint of dyspnea, tachycardia, described as moderate, Patient started experiencing this week(s) (2) and it has been constant. No relieving factors improve symptom(s), No exacerbating factors reported . Patient notes shortness of breath; denies chest pain, fever/chills, nausea/vomiting and syncope. Patient did receive the following treatments prior to arrival, none Related Data Home Medications ?Medication ?Instructions ?Recorded ?Confirmed diltiazem HCl 360 mg capsule,24 360 mg PO DAILY #90 caps 07/01/22 03/25/25 hr,extended release Held on 03/25/25. Instructions: Pt Stopped/Never Started dabigatran etexilate 150 mg capsule 150 mg PO DAILY 05/08/23 03/25/25 losartan 25 mg tablet 50 mg PO DAILY 05/08/23 03/25/25 Previous Rx's ?Medication ?Instructions ?Recorded diltiazem HCl 360 mg capsule,24 360 mg PO DAILY #90 caps 07/01/22 hr,extended release Held on 03/25/25. Instructions: Pt Stopped/Never Started Allergies Allergy/AdvReac Type Severity Reaction Status Date / Time No Known Allergies Allergy Verified 05/08/23 09:13 General Stated Complaint: SOB TAYLOR: 3 Review of Systems All systems reviewed & are unremarkable except as noted in HPI and below Constitutional Constitutional: Denies chills and Denies fever(s) Cardiovascular Cardiovascular: Reports chest pain, Reports palpitations and Denies dyspnea Respiratory Respiratory: Denies cough and Denies dyspnea Gastrointestinal Gastrointestinal: Denies abdominal pain, Denies nausea and Denies vomiting Endocrine Endocrine: Reports palpitations Exam Const General: no acute distress Orientation: alert HENMT Head: normal to inspection Ears: external ears normal General nose exam: external nose normal Mouth: moist mucous membranes Eyes General: appearance normal, both eyes and all related structures Neck Neck: normal visual inspection Resp Effort & Inspection: normal respiratory effort and able to speak in complete sentences Cardio Jugular venous pressure: no JVD Rate: tachycardic GI Palpation: soft and nontender Skin General skin exam: no rashes or lesions noted Neuro General: patient alert and patient oriented x3 Extrem General: no calf tenderness bilaterally and edema Psych Mental Status: mental status grossly normal Course Vital Signs Vital signs: Vital Signs Temperature 36.6 C 03/25/25 18:12 Pulse 146 H 03/25/25 18:12 Respiratory Rate 25 H 03/25/25 18:12 Blood Pressure 121/82 03/25/25 18:12 Pulse Oximetry 96 03/25/25 18:12 Temperature 36.6 C 03/25/25 18:24 Temperature Source Oral 03/25/25 18:24 Pulse 155 H 03/25/25 18:24 Respiratory Rate 25 H 03/25/25 18:24 Blood Pressure 121/82 03/25/25 18:24 Blood Pressure Position Sitting 03/25/25 18:24 Pulse Oximetry 96 03/25/25 18:24 Oxygen Delivery Method Room Air 03/25/25 18:24 Oxygen Flow Rate 0 03/25/25 18:12 Lab/Test Results Lab/Test Results: Laboratory Tests Range/Units 03/25/25 18:18 WBC (4.4-10.8) 10^3/uL 8.03 RBC (4.36-5.78) 10^6/uL 4.90 Hgb (13.5-17.5) g/dL 15.2 Hct (40.0-50.0) % 45.0 MCV (80-95) fL 92 MCH (27.0-33.0) pg 31.0 MCHC (32.0-36.0) % 33.8 RDW (11.8-14.1) % 13.6 Plt Count (130-400) 10^3/uL 246 MPV (8.0-11.0) fL 10.1 Immature Gran % % 0.5 Neutrophils % % 67.1 Lymphocytes % % 16.6 Monocytes % % 13.8 Eosinophils % % 1.1 Basophils % % 0.9 Nucleated RBC % (0.0-0.3) % 0.0 Absolute Neutrophils (1.2-6.7) 10^3/uL 5.39 Absolute Lymphocytes (1.2-3.4) 10^3/uL 1.33 Absolute Monocytes (0.1-0.8) 10^3/uL 1.11 H Absolute Eosinophils (0.0-0.7) 10^3/uL 0.09 Absolute Basophils (0.0-0.2) 10^3/uL 0.07 Medical Decision Making 80-year-old male with a history of A-fib on dabigatran but is no longer on diltiazem and states he is no longer on amiodarone who resides in [place] for part of the year and comes appear for few months comes in with several weeks of shortness of breath and feeling his heart beating fast and irregularly. He denies any chest pain or chest pressure, fevers, chills, vomiting, diaphoresis. He has edema of both lower extremities which he says been going on for couple weeks as well. He denies any tenderness in the calves. He has diminished lung sounds at the bases, no wheezing. No JVD. Soft nontender abdomen. He is in A-fib with RVR with rates ranging 130-150 on exam. I suspect his symptoms are related to A-fib and possibly CHF. Will treat with diltiazem and check CBC CMP and troponins and a chest x-ray and reassess. He is not anticoagulation and he has no pleuritic chest pain so I doubt PE. Patient responded well to the IV Dilts and I ordered oral 60 mg. Labs show mildly elevated troponin which I feel is rate related, will check a delta troponin. proBNP is over 20,000. He continues feels well states he feels significantly better now that his heart rate is better controlled with rates in the 90s to low 100s. He does have mildly elevated LFTs and his coags are elevated which could be from his anticoagulant but he also does have a history of alcohol use so suspect he could have either a component of alcoholic liver disease versus fatty liver given he is obese. He has no abdominal tenderness so I do not feel imaging of his abdomen acutely is indicated. Second Trop downtrending from 127 to 121. x-ray shows mild pulmonary congestion. I discussed with hospitalist and will plan for admission. Differential Diagnosis Differential Diagnosis: A-fib with RVR, electrolyte abnormality, CHF Lab Data Lab results reviewed: Yes I reviewed the patient's lab results. ECG Data Attestation: I personally reviewed and interpreted this ECG (s) as follows: Prior ECG tracings: available for review Interpretation: afib rates of 139 no stemi A-fib, rate of 91, no STEMI Critical Care Time Critical Care Time Critical Care Time: Yes Total Critical Care Time: 45 (minutes) Attestation: Time spent on lab review, hemodynamic monitoring and frequent reassessments in a patient with A-fib with RVR requiring IV diltiazem with the potential to deteriorate at any time. PFSH All Active Problems Bilateral hip pain (Acute) Renal insufficiency (Chronic) Social History Smoking/Tobacco Use Status: Never Smoking risk assessment performed?: Yes Alcohol Intake: current Alcohol Intake frequency: 0-2 drinks per day Alcohol type: wine Drug use: Occasionally Substance use type: marijuana Details: not for the last 30 days Do you feel safe at home: Yes Do you feel safe in your relationship?: Yes PAWSS Have you Been Recently Intoxicated or Drunk Within the Last 30 days?: No Have you Ever Experienced Previous Episodes of Alcohol Withdrawal?: No Have you ever Experienced Withdrawal Seizures?: No Have you ever Experienced Delirium Tremens(DT)s?: No Have you ever undergone Alcohol Rehabilitation Treatment (i.e, inpt ot outpatient treatment programs)?: No Have you ever Experienced Blackouts?: No Have you ever Combined Alcohol with other Downers within the last 90 days?: No Have you ever Combined Alcohol with any other Substance of Abuse during the last 90 days?: No Positive Blood Alcohol level on Presentation? [PCS.BAL]: No Evidence of Increased Autonomic Activity (i.e. HR>120, tremor, sweating, agitation, nausea)?: No Result: 0
[2025-03-25 18:39] LABS: INR 2.2 (0.9-1.1); PTT Activated 54.7 sec (20.6-30.2); Prothrombin Time 20.8 sec (9.1-11.1)
[2025-03-25 18:50] LABS: ALT 213 U/L (16-63); AST 211 U/L (15-37); Albumin 3.6 g/dL (3.4-5.0); Alkaline Phosphatase 223 U/L (46-116); Anion Gap 15.1 mmol/L (3-11); BUN 29 mg/dL (7-18); Bilirubin, Total 1.3 mg/dL (0.2-1.0); CO2 18.9 mmol/L (21.0-32.0); Calcium 9.3 mg/dL (8.5-10.1); Chloride 101 mmol/L (98-107); Estimated GFR 61.90 (mL/min/1.73m2); Glucose 132 mg/dL (74-106); Magnesium 2.1 mg/dL (1.8-2.4); NT-proBNP 20758 pg/mL (<300); Potassium 4.7 mmol/L (3.5-5.1); Sodium 135 mmol/L (136-145); TSH (W/Ref FT4) 2.08 uIU/mL (0.36-3.74); Total Protein 7.4 g/dL (6.4-8.2)
[2025-03-25] MEDS: Furosemide 20 MG/2 ML VIAL IVP (18:51)
[2025-03-25 18:52] LABS: Troponin I 127 ng/L (<or=76)
[2025-03-25] MEDS: dilTIAZem 60 MG TAB PO ×2 (19:09→23:56)
--- NOTE | 2025-03-25 19:41 | DI.VRAD_ITS ---
PROCEDURE INFORMATION: Exam: XR Chest Exam date and time: 03/25/2025 7:09 PM Age: 80 years old Clinical indication: Dyspnea TECHNIQUE: Imaging protocol: Radiologic exam of the chest. Views: 1 view. COMPARISON: CR XR PORTABLE CHEST AP 06/12/2022 10:38 AM FINDINGS: Tubes, catheters and devices: Cardiac leads superimposed over the chest. Lungs: Mild pulmonary venous hypertension without overt pulmonary edema. No alveolar infiltrate. Pleural spaces: No pneumothorax. No pleural fluid collection. Heart/Mediastinum: Normal heart size. Bones/joints: Spinal and shoulder degenerative changes. IMPRESSION: 1. Mild pulmonary venous hypertension without overt pulmonary edema. 2. No acute infiltrate. Dictated and Authenticated by: Claudy Abdullahi MD. Orderin Mauricio Painter MD
[2025-03-25] MEDS: Aspirin 325 MG TAB PO (20:04)
[2025-03-25 20:11] LABS: Troponin I 122 ng/L (<or=76)
--- NOTE | 2025-03-25 20:22 | HPE_ITS ---
Date of service: 03/25/25 Time of Service: 20:22 Assessment and Plan Assessment and plan (1) Paroxysmal atrial fibrillation with RVR: Start date: 03/25/25 Status: Acute Assessment and plan: This is a 80-year-old gentleman with a history of proximal atrial fibrillation and decreased left ejection fraction diagnosed in 2021 with recent cessation of medications for heart rate control now in recurrent atrial fibrillation with rapid ventricular response and evidence of CHF. His left carotid extraction had recovered with treatment of his atrial fibrillation when in sinus rhythm. He was on diuretics in the past but is not on those presently and is off diltiazem and recently amiodarone. He will be reinitiated on diltiazem orally with 60 mg every 6 hours and be reevaluated for CHF and echocardiogram in the morning. Troponins are elevated and appear to be secondary to cardiac strain from his tachycardia with patient having no ischemic changes on EKG or chest pain. Long- term he will need further evaluation at coronary artery system with planned surgery on his hips in the near future. He also should see cardiology locally. Formal consultation may not be available in the hospital. He has a full code. (2) Elevated troponin level not due myocardial infarction: Status: Acute Assessment and plan: Elevated but not trending upward by significant amount with the patient to have trending troponins hopefully to show a plateau at some point. His having better heart rate control. He also has been treated for CHF. Patient will be started on atorvastatin. (3) CHF (congestive heart failure): Start date: 03/25/25 Status: Acute Assessment and plan: Previously reduced left ventricular ejection fraction which recovered with treatment of his atrial fibrillation in the past. Update echocardiogram and continue Lasix 40 mg IV twice daily. His BNP was elevated from his previous BNP. (4) HTN (hypertension): Status: Chronic Assessment and plan: Continue losartan. Trend while on diltiazem. (5) Cirrhosis of liver: Status: Chronic Assessment and plan: Patient does drink alcohol and this may need further evaluation. He should be encouraged to stop alcohol entirely and follow-up this problem with his PCP. Trend labs while hospitalized. History of Present Illness History of Present Illness Chief Complaint: Increasing dyspnea and peripheral edema since stressful road trip. Narrative: This is a 80-year-old male patient who was first diagnosed with atrial fibrillation and decreased left ventricular ejection fraction in January 2022 at this institution. Since that time he was placed on medical therapy for atrial fibrillation and converted to sinus rhythm with medical therapy. He most recently was treated in his home town in the [facility] where he was told his left ventricular ejection fraction had improved back to normal on medical therapy and he was in sinus rhythm. He was being weaned from his medical therapy with amiodarone being weaned off and the patient holding his diltiazem recently. He had been on torsemide in the past as well and has not been on diuretics in the last months. As stated he has been having increased abdominal girth and swelling in his lower extremities over the last months since his stressful trip mig[place] a trailer from the [facility] to his summer home here in [place]. Patient does have a local PCP but did not think to report to her when he was having symptoms in January of this year. He states his trip was January 24, 2025. He did report to the ED because of his shortness of breath and edema with a fast heart rate and palpitations but no chest pain over the last 2 weeks. He was given Lasix in the ED with chest x-ray revealing slight vascular congestion but no overt pleural effusion or CHF with patient as stated having a history of a decreased left ventricular ejection fraction and CHF in the past. BNP was elevated at 20,000. He also was given IV diltiazem for his tachycardia associated with atrial fibrillation which was recurring. Patient stated he was in sinus rhythm when he was on amiodarone and weak. He may have been in atrial fibrillation since January of this year. He is on anticoagulation with Xarelto. He also has for hypertension with losartan. He did respond to IV diltiazem and oral diltiazem was continued at 60 mg every 6 hours. His heart rate was below 100 with this treatment. His troponin was slightly elevated and not trending down but will be trended but this thought to be secondary to strain from his tachycardia. He had no acute ischemic changes on EKG. He was having PVCs. Patient also appeared to have cirrhosis and does admit to drinking wine but has never had a problem with alcoholism. He also states that he has never had elevated lipids and no previous documented CAD. He has had a stress test past but not recently. The patient will be admitted with continued observation on telemetry while advancing diltiazem, continue Xarelto and losartan and will be treated for CHF with Lasix 40 mg IV twice daily. Echocardiogram will be updated. The patient should follow-up with cardiology as an outpatient and [facility] with plans of seen physicians at [facility] for planned hip replacement in the near future. He will need medical clearance for these procedures. He has a full code. Review of Systems Narrative: 13 point review of systems otherwise unrevealing or stable. Patient minimizes medical follow-up. He does have chronic hip pain pending bilateral hip replacement in the near future if he can be medically cleared. He has had PND with his resting dyspnea over the last couple months. PFSH All Active Problems (Updated 03/25/25 @ 20:30 by Satnam Laboy) Elevated troponin level not due myocardial infarction (Acute) Cirrhosis of liver (Chronic) HTN (hypertension) (Chronic) CHF (congestive heart failure) (Acute) Paroxysmal atrial fibrillation with RVR (Acute) Bilateral hip pain (Acute) Renal insufficiency (Chronic) Social History Smoking/Tobacco Use Status: Never Smoking risk assessment performed?: Yes Alcohol Intake: current Alcohol Intake frequency: 0-2 drinks per day Alcohol type: wine Drug use: Occasionally Substance use type: marijuana Details: not for the last 30 days Housing: house Do you feel safe at home: Yes Do you feel safe in your relationship?: Yes Meds Allergies and Home Medications Allergies Allergy/AdvReac Type Severity Reaction Status Date / Time No Known Allergies Allergy Verified 05/08/23 09:13 Home Medications ?Medication ?Instructions ?Recorded ?Confirmed ?Type diltiazem HCl 360 mg capsule,24 360 mg PO DAILY #90 ca ps 07/01/22 03/25/25 Rx hr,extended release Held on 03/25/25. Instructions: Pt Stopped/Never Started dabigatran etexilate 150 mg capsule 150 mg PO DAILY 03/25/25 History losartan 25 mg tablet 50 mg PO DAILY 05/08/2303/07 History Exam Narrative Exam Narrative: General: Patient appears appropriate for age, moderately obese, alert and oriented x 3 and in no acute distress. HEENT: Normocephalic, eyes with pupils equal and react to light symmetrically, extraocular movement intact and sclera anicteric. Oropharynx with moist Koza and fair dentition. Neck: Supple without JVD. Back: Stooped posture without CVA tenderness. Lungs: Fair aeration with no focalizing rales or rhonchi. No expiratory wheeze. Normal aeration at the bases. Heart: Irregularly, irregular rhythm with 3/6 holosystolic murmur over the apex with increased intensity during expiration. No gallop or rub. Abdomen: Obese contour, soft to palpation with no guarding or rebound. Patient is nontender. Bowel sounds are positive in all quadrants. No palpable hepatosplenomegaly. Patient does have a pannus with some edema over the lower abdomen. Genitalia/rectal: Exam deferred. Extremities: 3+ pitting edema over the legs up onto the thighs. No clubbing or cyanosis.. Cap refill. Skin: Normal color, warm and dry. Neuro: Cranial nerves II through XII intact, no focalized motor deficits or tremor. Psych: Normal affect and mood. No abnormal thought processes. Remote and recent memory intact. Results Imaging Imaging Studies: Exam: XR Chest Exam date and time: 03/25/2025 7:09 PM Age: 80 years old Clinical indication: Dyspnea TECHNIQUE: Imaging protocol: Radiologic exam of the chest. Views: 1 view. COMPARISON: CR XR PORTABLE CHEST AP 06/12/2022 10:38 AM FINDINGS: Tubes, catheters and devices: Cardiac leads superimposed over the chest. Lungs: Mild pulmonary venous hypertension without overt pulmonary edema. No alveolar infiltrate. Pleural spaces: No pneumothorax. No pleural fluid collection. Heart/Mediastinum: Normal heart size. Bones/joints: Spinal and shoulder degenerative changes. IMPRESSION: 1. Mild pulmonary venous hypertension without overt pulmonary edema. 2. No acute infiltrate. EXAM: Comprehensive 2D, Doppler, and color-flow Echocardiogram Indications: New onset A Fib with CHF Date exam: 06/13/2022 Study Quality: Adequate Conclusion Normal left ventricular wall thickness and chamber size. Estimated ejection fraction is 20 to 25%. There is global hypokinesis, no segmental wall motion abnormalities The right ventricle appears mildly dilated and hypocontractile The left atrium is mildly dilated. Right atrial size is normal Aortic valve is sclerotic. Number of leaflets cannot be accurately determined. There is no aortic regurgitation. Peak gradient is 25, mean is 17 mmHg. There is probable severe aortic stenosis Mitral annular calcification. Moderate mitral regurgitation Normal tricuspid valve with trace to mild regurgitation. Estimated right ventricular systolic pressure is 32 mmHg Labs 03/26/25 03:55 03/26/25 03:55 Labs: Laboratory Results - last 24 hr 03/25/25 03/25/25 18:18 19:40 WBC 8.03 RBC 4.90 Hgb 15.2 Hct 45.0 MCV 92 MCH 31.0 MCHC 33.8 RDW 13.6 Plt Count 246 MPV 10.1 Immature Gran % 0.5 Neutrophils % 67.1 Lymphocytes % 16.6 Monocytes % 13.8 Eosinophils % 1.1 Basophils % 0.9 Nucleated RBC % 0.0 Absolute Neutrophils 5.39 Absolute Lymphocytes 1.33 Absolute Monocytes 1.11 H Absolute Eosinophils 0.09 Absolute Basophils 0.07 PT 20.8 H INR 2.2 H APTT 54.7 H Sodium 135 L Potassium 4.7 Chloride 101 Carbon Dioxide 18.9 L Anion Gap 15.1 H BUN 29 H Creatinine 1.2 Est GFR (CKD-EPI 2020) 61.90 Glucose 132 H Calcium 9.3 Magnesium 2.1 Total Bilirubin 1.3 H AST 211 H ALT 213 H Alkaline Phosphatase 223 H Troponin I 127 H* 122 H* NT-Pro-B Natriuret Pep 84325 H Total Protein 7.4 Albumin 3.6 TSH 2.08 Last Vital Signs Temp 36.6 C 03/25/25 18:24 Pulse 94 H 03/25/25 19:10 Resp 17 03/25/25 19:10 BP 105/89 03/25/25 19:02 Pulse Ox 96 03/25/25 19:10 PAWSS Have you Been Recently Intoxicated or Drunk Within the Last 30 days?: No Have you Ever Experienced Previous Episodes of Alcohol Withdrawal?: No Have you ever Experienced Withdrawal Seizures?: No Have you ever Experienced Delirium Tremens(DT)s?: No Have you ever undergone Alcohol Rehabilitation Treatment (i.e, inpt ot outpatient treatment programs)?: No Have you ever Experienced Blackouts?: No Have you ever Combined Alcohol with other Downers within the last 90 days?: No Have you ever Combined Alcohol with any other Substance of Abuse during the last 90 days?: No Positive Blood Alcohol level on Presentation? [PCS.BAL]: No Evidence of Increased Autonomic Activity (i.e. HR>120, tremor, sweating, agitation, nausea)?: No Result: 0 Time Spent Time spent with Patient: >75 minutes Time was spent: preparing to see the patient(eg.review tests), obtaining and/or reviewing separately otained hiistory, ordering medications,tests, procedures, referring, communicating with other health care transition manager, indepentently interpreting results, counseling the patient and care coordination
[2025-03-25] MEDS: Normal Saline Flush 10 ML SYR IVP (20:40)
--- NOTE | 2025-03-25 21:18 | W.PC.ACHO ---
Registration Status: REG ER Primary Language: Preferred Language: ED Information & Data Chief Complaint SOB 03/25/25 18:36 Triage Note Patient presented with 03/25/25 18:12 increase SOB for the past couple of weeks upon exertion. HR 150s as per EMS in AFIB/RVR. was advised by PCP to come to the ER today . Patient has been having increased swelling into bilateral legs, 4+ Most Recent Vital Signs Temperature 36.6 C 03/25/25 18:24 Temperature Source Oral 03/25/25 18:24 Pulse 113 H 03/25/25 20:41 Pulse 118 H 03/25/25 20:40 Respiratory Rate 19 03/25/25 20:40 Respiratory Effort Normal, Non-Labored 03/25/25 18:45 Respiratory Depth Normal 03/25/25 18:45 Respiratory Pattern Normal 03/25/25 18:45 Blood Pressure 102/82 03/25/25 20:32 Blood Pressure Mean 88 03/25/25 20:32 Blood Pressure Position Sitting 03/25/25 18:24 Pulse Oximetry 95 03/25/25 20:40 Oxygen Delivery Method Room Air 03/25/25 18:24 Oxygen Flow Rate 0 03/25/25 18:12 Allergies No Known Allergies Allergy (Verified 05/08/23 09:13) IV IV Catheter Type [Left Peripheral IV Antecubital] IV Catheter Type [Right Peripheral IV Antecubital] IV Catheter Gauge [Left 20 Antecubital] IV Catheter Gauge [Right 18 Antecubital] Diagnostics 03/25/25 03/25/25 03/25/25 Range/Units 21:08 20:58 19:40 WBC (4.4-10.8) 10^3/uL RBC (4.36-5.78) 10^6/uL Hgb (13.5-17.5) g/dL Hct (40.0-50.0) % MCV (80-95) fL MCH (27.0-33.0) pg MCHC (32.0-36.0) % RDW (11.8-14.1) % Plt Count (130-400) 10^3/uL MPV (8.0-11.0) fL Immature Gran % % Neutrophils % % Lymphocytes % % Monocytes % % Eosinophils % % Basophils % % Nucleated RBC % (0.0-0.3) % Absolute Neutrophils (1.2-6.7) 10^3/uL Absolute Lymphocytes (1.2-3.4) 10^3/uL Absolute Monocytes (0.1-0.8) 10^3/uL Absolute Eosinophils (0.0-0.7) 10^3/uL Absolute Basophils (0.0-0.2) 10^3/uL PT (9.1-11.1) sec INR (0.9-1.1) APTT (20.6-30.2) sec Sodium (136-145) mmol/L Potassium (3.5-5.1) mmol/L Chloride (98-107) mmol/L Carbon Dioxide (21.0-32.0) mmol/L Anion Gap (3-11) mmol/L BUN (7-18) mg/dL Creatinine (0.70-1.30) mg/dL Est GFR (CKD-EPI 2020) (mL/min/1.73m2) Glucose (74-106) mg/dL Calcium (8.5-10.1) mg/dL Magnesium (1.8-2.4) mg/dL Total Bilirubin (0.2-1.0) mg/dL AST (15-37) U/L ALT (16-63) U/L Alkaline Phosphatase (46-116) U/L Troponin I Pending 122 H* (<or=76) ng/L NT-Pro-B Natriuret Pep (<300) pg/mL Total Protein (6.4-8.2) g/dL Albumin (3.4-5.0) g/dL TSH (0.36-3.74) uIU/mL Urine Opiates Screen Pending Ur Barbiturates Screen Pending Ur Tricyclics Screen Pending Ur Amphetamines Screen Pending U Benzodiazepines Scrn Pending Urine Cocaine Screen Pending Ur THC Screen Pending Ethyl Alcohol Pending COVID-19 Source Pending SARS-CoV-2 (PCR) Pending Influenza Type A (PCR) Pending Influenza Type B (PCR) Pending RSV (PCR) Pending 03/25/25 Range/Units 18:18 WBC 8.03 (4.4-10.8) 10^3/uL RBC 4.90 (4.36-5.78) 10^6/uL Hgb 15.2 (13.5-17.5) g/dL Hct 45.0 (40.0-50.0) % MCV 92 (80-95) fL MCH 31.0 (27.0-33.0) pg MCHC 33.8 (32.0-36.0) % RDW 13.6 (11.8-14.1) % Plt Count 246 (130-400) 10^3/uL MPV 10.1 (8.0-11.0) fL Immature Gran % 0.5 % Neutrophils % 67.1 % Lymphocytes % 16.6 % Monocytes % 13.8 % Eosinophils % 1.1 % Basophils % 0.9 % Nucleated RBC % 0.0 (0.0-0.3) % Absolute Neutrophils 5.39 (1.2-6.7) 10^3/uL Absolute Lymphocytes 1.33 (1.2-3.4) 10^3/uL Absolute Monocytes 1.11 H (0.1-0.8) 10^3/uL Absolute Eosinophils 0.09 (0.0-0.7) 10^3/uL Absolute Basophils 0.07 (0.0-0.2) 10^3/uL PT 20.8 H (9.1-11.1) sec INR 2.2 H (0.9-1.1) APTT 54.7 H (20.6-30.2) sec Sodium 135 L (136-145) mmol/L Potassium 4.7 (3.5-5.1) mmol/L Chloride 101 (98-107) mmol/L Carbon Dioxide 18.9 L (21.0-32.0) mmol/L Anion Gap 15.1 H (3-11) mmol/L BUN 29 H (7-18) mg/dL Creatinine 1.2 (0.70-1.30) mg/dL Est GFR (CKD-EPI 2020) 61.90 (mL/min/1.73m2) Glucose 132 H (74-106) mg/dL Calcium 9.3 (8.5-10.1) mg/dL Magnesium 2.1 (1.8-2.4) mg/dL Total Bilirubin 1.3 H (0.2-1.0) mg/dL AST 211 H (15-37) U/L ALT 213 H (16-63) U/L Alkaline Phosphatase 223 H (46-116) U/L Troponin I 127 H* (<or=76) ng/L NT-Pro-B Natriuret Pep 58742 H (<300) pg/mL Total Protein 7.4 (6.4-8.2) g/dL Albumin 3.6 (3.4-5.0) g/dL TSH 2.08 (0.36-3.74) uIU/mL Urine Opiates Screen Ur Barbiturates Screen Ur Tricyclics Screen Ur Amphetamines Screen U Benzodiazepines Scrn Urine Cocaine Screen Ur THC Screen Ethyl Alcohol COVID-19 Source SARS-CoV-2 (PCR) Influenza Type A (PCR) Influenza Type B (PCR) RSV (PCR) Intake and Output - 24 Hour Total 03/25/25 18:04 thru 03/25/25 18:12 Weight 106.5 kg Falls Risk Assessment History of Falls No History 03/25/25 19:13 Contributing Factors No Factors 03/25/25 19:13 Ambulatory Aids Independent 03/25/25 19:13 Tubes/Lines None 03/25/25 19:13 Gait Evaluation No gait disturbance 03/25/25 19:13 Cognition No cognitive impairment 03/25/25 19:13 Fall Total Score 0 03/25/25 19:13 Level of Risk Standard/Low Risk 03/25/25 19:13 Problems (Last Reviewed 03/25/25 @ 20:22 by Satnam Laboy) Elevated troponin level not due myocardial infarction (Acute) Cirrhosis of liver (Chronic) HTN (hypertension) (Chronic) CHF (congestive heart failure) (Acute) Paroxysmal atrial fibrillation with RVR (Acute) v v v v v v v v v Sending and/or Receiving Nurses: Please use comment section below to note any information pertinent to the patient hand-off not included above. Information / Comments: Report received from:douglas
[2025-03-25 21:21] LABS: Cannabinoids THC Negative (Negative); METHADONE URINE SCREEN Negative (Negative)
[2025-03-25 21:38] LABS: COVID-19 PCR Negative (Negative); RSV PCR Negative (Negative)
--- NOTE | 2025-03-25 21:54 | W.PC.ACHO ---
Registration Status: ADM IN Primary Language: Preferred Language: ED Information & Data Chief Complaint SOB 03/25/25 18:36 Triage Note Patient presented with 03/25/25 18:12 increase SOB for the past couple of weeks upon exertion. HR 150s as per EMS in AFIB/RVR. was advised by PCP to come to the ER today . Patient has been having increased swelling into bilateral legs, 4+ Most Recent Vital Signs Temperature 36.6 C 03/25/25 18:24 Temperature Source Oral 03/25/25 18:24 Pulse 95 H 03/25/25 21:15 Pulse 93 H 03/25/25 21:15 Respiratory Rate 17 03/25/25 21:15 Respiratory Effort Normal, Non-Labored 03/25/25 18:45 Respiratory Depth Normal 03/25/25 18:45 Respiratory Pattern Normal 03/25/25 18:45 Blood Pressure 117/92 H 03/25/25 21:00 Blood Pressure Mean 84 03/25/25 21:15 Blood Pressure Position Sitting 03/25/25 18:24 Pulse Oximetry 95 03/25/25 21:15 Oxygen Delivery Method Room Air 03/25/25 18:24 Oxygen Flow Rate 0 03/25/25 18:12 Allergies No Known Allergies Allergy (Verified 05/08/23 09:13) IV IV Catheter Type [Left Peripheral IV Antecubital] IV Catheter Type [Right Peripheral IV Antecubital] IV Catheter Gauge [Left 20 Antecubital] IV Catheter Gauge [Right 18 Antecubital] Diet Orders Category Date Time Status Heart Healthy Eating [DIET] Nutrition 03/26/25 Breakfast Ordered Diagnostics 03/25/25 03/25/25 03/25/25 Range/Units 21:50 21:20 20:58 WBC (4.4-10.8) 10^3/uL RBC (4.36-5.78) 10^6/uL Hgb (13.5-17.5) g/dL Hct (40.0-50.0) % MCV (80-95) fL MCH (27.0-33.0) pg MCHC (32.0-36.0) % RDW (11.8-14.1) % Plt Count (130-400) 10^3/uL MPV (8.0-11.0) fL Immature Gran % % Neutrophils % % Lymphocytes % % Monocytes % % Eosinophils % % Basophils % % Nucleated RBC % (0.0-0.3) % Absolute Neutrophils (1.2-6.7) 10^3/uL Absolute Lymphocytes (1.2-3.4) 10^3/uL Absolute Monocytes (0.1-0.8) 10^3/uL Absolute Eosinophils (0.0-0.7) 10^3/uL Absolute Basophils (0.0-0.2) 10^3/uL PT (9.1-11.1) sec INR (0.9-1.1) APTT (20.6-30.2) sec VBG Lactate 1.9 (<or=2.0) mmol/L Sodium (136-145) mmol/L Potassium (3.5-5.1) mmol/L Chloride (98-107) mmol/L Carbon Dioxide (21.0-32.0) mmol/L Anion Gap (3-11) mmol/L BUN (7-18) mg/dL Creatinine (0.70-1.30) mg/dL Est GFR (CKD-EPI 2020) (mL/min/1.73m2) Glucose (74-106) mg/dL Calcium (8.5-10.1) mg/dL Magnesium (1.8-2.4) mg/dL Total Bilirubin (0.2-1.0) mg/dL AST (15-37) U/L ALT (16-63) U/L Alkaline Phosphatase (46-116) U/L Troponin I Pending (<or=76) ng/L NT-Pro-B Natriuret Pep (<300) pg/mL Total Protein (6.4-8.2) g/dL Albumin (3.4-5.0) g/dL TSH (0.36-3.74) uIU/mL Urine Opiates Screen Negative (Negative) Urine Methadone Screen Negative (Negative) Ur Barbiturates Screen Negative (Negative) Ur Tricyclics Screen Negative (Negative) Ur Amphetamines Screen Negative (Negative) U Benzodiazepines Scrn Negative (Negative) Urine Cocaine Screen Negative (Negative) Ur THC Screen Negative (Negative) Ethyl Alcohol (<10) mg/dL COVID-19 Source Nasopharynx SARS-CoV-2 (PCR) Negative (Negative) Influenza Type A (PCR) Negative (Negative) Influenza Type B (PCR) Negative (Negative) RSV (PCR) Negative (Negative) 03/25/25 03/25/25 Range/Units 19:40 18:18 WBC 8.03 (4.4-10.8) 10^3/uL RBC 4.90 (4.36-5.78) 10^6/uL Hgb 15.2 (13.5-17.5) g/dL Hct 45.0 (40.0-50.0) % MCV 92 (80-95) fL MCH 31.0 (27.0-33.0) pg MCHC 33.8 (32.0-36.0) % RDW 13.6 (11.8-14.1) % Plt Count 246 (130-400) 10^3/uL MPV 10.1 (8.0-11.0) fL Immature Gran % 0.5 % Neutrophils % 67.1 % Lymphocytes % 16.6 % Monocytes % 13.8 % Eosinophils % 1.1 % Basophils % 0.9 % Nucleated RBC % 0.0 (0.0-0.3) % Absolute Neutrophils 5.39 (1.2-6.7) 10^3/uL Absolute Lymphocytes 1.33 (1.2-3.4) 10^3/uL Absolute Monocytes 1.11 H (0.1-0.8) 10^3/uL Absolute Eosinophils 0.09 (0.0-0.7) 10^3/uL Absolute Basophils 0.07 (0.0-0.2) 10^3/uL PT 20.8 H (9.1-11.1) sec INR 2.2 H (0.9-1.1) APTT 54.7 H (20.6-30.2) sec VBG Lactate (<or=2.0) mmol/L Sodium 135 L (136-145) mmol/L Potassium 4.7 (3.5-5.1) mmol/L Chloride 101 (98-107) mmol/L Carbon Dioxide 18.9 L (21.0-32.0) mmol/L Anion Gap 15.1 H (3-11) mmol/L BUN 29 H (7-18) mg/dL Creatinine 1.2 (0.70-1.30) mg/dL Est GFR (CKD-EPI 2020) 61.90 (mL/min/1.73m2) Glucose 132 H (74-106) mg/dL Calcium 9.3 (8.5-10.1) mg/dL Magnesium 2.1 (1.8-2.4) mg/dL Total Bilirubin 1.3 H (0.2-1.0) mg/dL AST 211 H (15-37) U/L ALT 213 H (16-63) U/L Alkaline Phosphatase 223 H (46-116) U/L Troponin I 122 H* 127 H* (<or=76) ng/L NT-Pro-B Natriuret Pep 48660 H (<300) pg/mL Total Protein 7.4 (6.4-8.2) g/dL Albumin 3.6 (3.4-5.0) g/dL TSH 2.08 (0.36-3.74) uIU/mL Urine Opiates Screen (Negative) Urine Methadone Screen (Negative) Ur Barbiturates Screen (Negative) Ur Tricyclics Screen (Negative) Ur Amphetamines Screen (Negative) U Benzodiazepines Scrn (Negative) Urine Cocaine Screen (Negative) Ur THC Screen (Negative) Ethyl Alcohol < 3.0 (<10) mg/dL COVID-19 Source SARS-CoV-2 (PCR) (Negative) Influenza Type A (PCR) (Negative) Influenza Type B (PCR) (Negative) RSV (PCR) (Negative) Intake and Output - 24 Hour Total 03/25/25 18:04 thru 03/25/25 18:12 Weight 106.5 kg Falls Risk Assessment History of Falls No History 03/25/25 19:13 Contributing Factors No Factors 03/25/25 19:13 Ambulatory Aids Independent 03/25/25 19:13 Tubes/Lines None 03/25/25 19:13 Gait Evaluation No gait disturbance 03/25/25 19:13 Cognition No cognitive impairment 03/25/25 19:13 Fall Total Score 0 03/25/25 19:13 Level of Risk Standard/Low Risk 03/25/25 19:13 Problems (Last Reviewed 03/25/25 @ 20:22 by Satnam Laboy) Elevated troponin level not due myocardial infarction (Acute) Cirrhosis of liver (Chronic) HTN (hypertension) (Chronic) CHF (congestive heart failure) (Acute) Paroxysmal atrial fibrillation with RVR (Acute) v v v v v v v v v Sending and/or Receiving Nurses: Please use comment section below to note any information pertinent to the patient hand-off not included above. Information / Comments: Report received from: Willem Finnegan
[2025-03-25 21:56] LABS: Troponin I 143 ng/L (<or=76)
[2025-03-25 23:46] LABS: Glucose Negative (Negative)
[2025-03-25 23:53] LABS: C & S Indicated? No; RBC 0-2 HPF (0-2); WBC 0-2 HPF (0-5)
[2025-03-26 01:48] VITALS: BP 104/83; PULSE 108; RESP 16; TEMP 36.2; O2SAT 97
--- NOTE | 2025-03-26 02:13 | W.PC.ACHO ---
Registration Status: ADM IN Primary Language: Preferred Language: ED Information & Data Chief Complaint SOB 03/25/25 18:36 Triage Note Patient presented with 03/25/25 18:12 increase SOB for the past couple of weeks upon exertion. HR 150s as per EMS in AFIB/RVR. was advised by PCP to come to the ER today . Patient has been having increased swelling into bilateral legs, 4+ Most Recent Vital Signs Temperature 36.6 C 03/25/25 18:24 Temperature Source Oral 03/25/25 18:24 Pulse 95 H 03/25/25 21:15 Pulse 93 H 03/25/25 21:15 Respiratory Rate 17 03/25/25 21:15 Respiratory Effort Normal, Non-Labored 03/25/25 18:45 Respiratory Depth Normal 03/25/25 18:45 Respiratory Pattern Normal 03/25/25 18:45 Blood Pressure 117/92 H 03/25/25 21:00 Blood Pressure Mean 84 03/25/25 21:15 Blood Pressure Position Sitting 03/25/25 18:24 Pulse Oximetry 95 03/25/25 21:15 Oxygen Delivery Method Room Air 03/25/25 18:24 Oxygen Flow Rate 0 03/25/25 18:12 Allergies No Known Allergies Allergy (Verified 05/08/23 09:13) IV IV Catheter Type [Left Peripheral IV Antecubital] IV Catheter Type [Right Peripheral IV Antecubital] IV Catheter Gauge [Left 20 Antecubital] IV Catheter Gauge [Right 18 Antecubital] Diet Orders Category Date Time Status Heart Healthy Eating [DIET] Nutrition 03/26/25 Breakfast Ordered Diagnostics 03/25/25 03/25/25 03/25/25 Range/Units 21:50 21:20 20:58 WBC (4.4-10.8) 10^3/uL RBC (4.36-5.78) 10^6/uL Hgb (13.5-17.5) g/dL Hct (40.0-50.0) % MCV (80-95) fL MCH (27.0-33.0) pg MCHC (32.0-36.0) % RDW (11.8-14.1) % Plt Count (130-400) 10^3/uL MPV (8.0-11.0) fL Immature Gran % % Neutrophils % % Lymphocytes % % Monocytes % % Eosinophils % % Basophils % % Nucleated RBC % (0.0-0.3) % Absolute Neutrophils (1.2-6.7) 10^3/uL Absolute Lymphocytes (1.2-3.4) 10^3/uL Absolute Monocytes (0.1-0.8) 10^3/uL Absolute Eosinophils (0.0-0.7) 10^3/uL Absolute Basophils (0.0-0.2) 10^3/uL PT (9.1-11.1) sec INR (0.9-1.1) APTT (20.6-30.2) sec VBG Lactate 1.9 (<or=2.0) mmol/L Sodium (136-145) mmol/L Potassium (3.5-5.1) mmol/L Chloride (98-107) mmol/L Carbon Dioxide (21.0-32.0) mmol/L Anion Gap (3-11) mmol/L BUN (7-18) mg/dL Creatinine (0.70-1.30) mg/dL Est GFR (CKD-EPI 2020) (mL/min/1.73m2) Glucose (74-106) mg/dL Calcium (8.5-10.1) mg/dL Magnesium (1.8-2.4) mg/dL Total Bilirubin (0.2-1.0) mg/dL AST (15-37) U/L ALT (16-63) U/L Alkaline Phosphatase (46-116) U/L Troponin I Pending (<or=76) ng/L NT-Pro-B Natriuret Pep (<300) pg/mL Total Protein (6.4-8.2) g/dL Albumin (3.4-5.0) g/dL TSH (0.36-3.74) uIU/mL Urine Opiates Screen Negative (Negative) Urine Methadone Screen Negative (Negative) Ur Barbiturates Screen Negative (Negative) Ur Tricyclics Screen Negative (Negative) Ur Amphetamines Screen Negative (Negative) U Benzodiazepines Scrn Negative (Negative) Urine Cocaine Screen Negative (Negative) Ur THC Screen Negative (Negative) Ethyl Alcohol (<10) mg/dL COVID-19 Source Nasopharynx SARS-CoV-2 (PCR) Negative (Negative) Influenza Type A (PCR) Negative (Negative) Influenza Type B (PCR) Negative (Negative) RSV (PCR) Negative (Negative) 03/25/25 03/25/25 Range/Units 19:40 18:18 WBC 8.03 (4.4-10.8) 10^3/uL RBC 4.90 (4.36-5.78) 10^6/uL Hgb 15.2 (13.5-17.5) g/dL Hct 45.0 (40.0-50.0) % MCV 92 (80-95) fL MCH 31.0 (27.0-33.0) pg MCHC 33.8 (32.0-36.0) % RDW 13.6 (11.8-14.1) % Plt Count 246 (130-400) 10^3/uL MPV 10.1 (8.0-11.0) fL Immature Gran % 0.5 % Neutrophils % 67.1 % Lymphocytes % 16.6 % Monocytes % 13.8 % Eosinophils % 1.1 % Basophils % 0.9 % Nucleated RBC % 0.0 (0.0-0.3) % Absolute Neutrophils 5.39 (1.2-6.7) 10^3/uL Absolute Lymphocytes 1.33 (1.2-3.4) 10^3/uL Absolute Monocytes 1.11 H (0.1-0.8) 10^3/uL Absolute Eosinophils 0.09 (0.0-0.7) 10^3/uL Absolute Basophils 0.07 (0.0-0.2) 10^3/uL PT 20.8 H (9.1-11.1) sec INR 2.2 H (0.9-1.1) APTT 54.7 H (20.6-30.2) sec VBG Lactate (<or=2.0) mmol/L Sodium 135 L (136-145) mmol/L Potassium 4.7 (3.5-5.1) mmol/L Chloride 101 (98-107) mmol/L Carbon Dioxide 18.9 L (21.0-32.0) mmol/L Anion Gap 15.1 H (3-11) mmol/L BUN 29 H (7-18) mg/dL Creatinine 1.2 (0.70-1.30) mg/dL Est GFR (CKD-EPI 2020) 61.90 (mL/min/1.73m2) Glucose 132 H (74-106) mg/dL Calcium 9.3 (8.5-10.1) mg/dL Magnesium 2.1 (1.8-2.4) mg/dL Total Bilirubin 1.3 H (0.2-1.0) mg/dL AST 211 H (15-37) U/L ALT 213 H (16-63) U/L Alkaline Phosphatase 223 H (46-116) U/L Troponin I 122 H* 127 H* (<or=76) ng/L NT-Pro-B Natriuret Pep 01356 H (<300) pg/mL Total Protein 7.4 (6.4-8.2) g/dL Albumin 3.6 (3.4-5.0) g/dL TSH 2.08 (0.36-3.74) uIU/mL Urine Opiates Screen (Negative) Urine Methadone Screen (Negative) Ur Barbiturates Screen (Negative) Ur Tricyclics Screen (Negative) Ur Amphetamines Screen (Negative) U Benzodiazepines Scrn (Negative) Urine Cocaine Screen (Negative) Ur THC Screen (Negative) Ethyl Alcohol < 3.0 (<10) mg/dL COVID-19 Source SARS-CoV-2 (PCR) (Negative) Influenza Type A (PCR) (Negative) Influenza Type B (PCR) (Negative) RSV (PCR) (Negative) Intake and Output - 24 Hour Total 03/25/25 18:04 thru 03/25/25 18:12 Weight 106.5 kg Falls Risk Assessment History of Falls No History 03/25/25 19:13 Contributing Factors No Factors 03/25/25 19:13 Ambulatory Aids Independent 03/25/25 19:13 Tubes/Lines None 03/25/25 19:13 Gait Evaluation No gait disturbance 03/25/25 19:13 Cognition No cognitive impairment 03/25/25 19:13 Fall Total Score 0 03/25/25 19:13 Level of Risk Standard/Low Risk 03/25/25 19:13 Problems (Last Reviewed 03/25/25 @ 20:22 by Satnam Laboy) Elevated troponin level not due myocardial infarction (Acute) Cirrhosis of liver (Chronic) HTN (hypertension) (Chronic) CHF (congestive heart failure) (Acute) Paroxysmal atrial fibrillation with RVR (Acute) v v v v v v v v v Sending and/or Receiving Nurses: Please use comment section below to note any information pertinent to the patient hand-off not included above. Information / Comments: pt.transfer from ED to Room 211 via stretchers .AOx4 . VSS RA denied SOB , denied N/V , continent Both last BM 03/25 using Urinal denied pain . on telemonitor HR irregular Afib RVR , pt on bed sleep with no acute distress Report received from: Willem Finnegan RN to Katherine Salinas RN
[2025-03-26 03:58] LABS: HCT 40.9 % (40.0-50.0); HGB 13.7 g/dL (13.5-17.5); MCH 31.0 pg (27.0-33.0); MCHC 33.5 % (32.0-36.0); MCV 93 fL (80-95); MPV 10.2 fL (8.0-11.0); Platelet Count 203 10^3/uL (130-400); RBC 4.42 10^6/uL (4.36-5.78); RDW 13.4 % (11.8-14.1); RDW-SD 45.4 fL; WBC 7.52 10^3/uL (4.4-10.8)
[2025-03-26 04:08] LABS: INR 1.7 (0.9-1.1); Prothrombin Time 16.2 sec (9.1-11.1)
[2025-03-26 04:14] LABS: ALT 185 U/L (16-63); AST 152 U/L (15-37); Albumin 3.1 g/dL (3.4-5.0); Alkaline Phosphatase 186 U/L (46-116); Anion Gap 13.8 mmol/L (3-11); BUN 30 mg/dL (7-18); Bilirubin, Total 0.9 mg/dL (0.2-1.0); CO2 21.2 mmol/L (21.0-32.0); Calcium 8.7 mg/dL (8.5-10.1); Chloride 102 mmol/L (98-107); Estimated GFR 68.71 (mL/min/1.73m2); Glucose 100 mg/dL (74-106); Magnesium 1.9 mg/dL (1.8-2.4); Potassium 4.1 mmol/L (3.5-5.1); Sodium 137 mmol/L (136-145); Total Protein 6.4 g/dL (6.4-8.2)
[2025-03-26 04:19] LABS: Troponin I 148 ng/L (<or=76)
[2025-03-26] MEDS: dilTIAZem 60 MG TAB PO ×4 (05:33→23:49)
[2025-03-26 07:26] LABS: Troponin I 157 ng/L (<or=76)
[2025-03-26 07:51] VITALS: BP 111/90; PULSE 117; RESP 18; TEMP 36.1; O2SAT 99
[2025-03-26] MEDS: Furosemide 40 MG/4 ML VIAL IVP ×2 (08:10→17:38)
[2025-03-26] MEDS: Atorvastatin 40 MG TAB 80 MG PO ×2 (08:10→20:33)
[2025-03-26] MEDS: Losartan 25 MG TAB 50 MG PO (08:11)
[2025-03-26] MEDS: Normal Saline Flush 10 ML SYR IVP ×2 (08:12→20:33)
--- NOTE | 2025-03-26 08:51 | INITIAL_ITS ---
Date of service: 03/26/25 Time of Service: 08:52 Care Management Initial Assmt Initial Assessment Reason for Hospitalization: afib with rapid ventricular response Functional Status/Living Situation Patient Presentation: German presented to the ED last evening with c/o dyspnea and tachycardia. He stated that these symptoms have been constant for the last 2 weeks or so. German was sitting up in bed when CM met with him today. He was very pleasant with CM and stated that he is feeling a lot better and would like to go home. German and his summer at [facility], and spend pacheco in [place]. German has a universal banker and a PCP in [place]. German also has a PCP in this area, and he has an appointment at [facility] on 04/01. 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[place]) Instrumental Activities of Daily Living (ADLs): Independent Activities/Hobbies/SocialSupport: enjoys anything to do with cars Medications Medication Management: No Issues/Barriers identified Physical Functioning/Mobility Assistive Device: cane Advance Directives Advance Directives: Do you have an Advance Directive: N , 10:44 AD On File at [facility]: N 05/10/23, 10:44 Date Asked 03/25/25 03/25/25, 18:36 AD Date Reviewed COLST On File at [facility] No 03/25/25, 18:36 COLST Date Scanned Code Status Resuscitation Status Full Code Insurance Coverage/Financial Issues Insurance: Medicare Part A & B BC/BS Out of State Care Team Visit Care Team Role Provider Type Katherine Quintanilla APRN MD [facility] STAFF PHYSICIAN James Guzman DO Primary Care Provider OSTEOPATHIC DOCTOR Inocencio Martníez MD Emergency Provider [facility] STAFF PHYSICIAN Satnam Laboy Admit Provider NON-[facility] STAFF PHYSICIAN Attending Provider Discharge Potential Discharge Needs: Consult Consult Services Needed: Cardiology, Imaging/labs (echocardiogram - done today) and PCP F/U Appt Anticipated Barriers to Discharge: None Identified Patient/Family Education Needs: Review discharge instructions, discuss Ask Me Three Transportation: Private vehicle Plan: Anticipate that German will discharge home with no new services. He will f/u with his PCP on 04/01 at 2 pm,and possibly cardiology, and continue per his plan of care. CM will continue to follow. Social Determinants of Health Screening Social Determinants of health last assessed in clinic: 03/26/25 Will the Patient Participate in the Screening?: Yes Do you worry about having a steady place to live?: yes What is your living situation today?: I have housing today, but am worried about losing it Problems where you live: no known problems In the past 12 months, have you had to go without electric, gas, oil or water in your home?: no 1. Within the past 12 months, we worried whether our food would run out before we got money to buy more.: Never true 2. Within the past 12 months, the food we bought just didn't last and we didn't have money to get more.: Never true Has lack of transportation kept you from medical appointments or from doing things needed for daily living?: no Has anyone in your life made you feel unsafe or unsupported?: no How hard is it for you to pay for the very basics like food, housing, medical care, and heating? Would you say it is:: Not hard at all Do you want help finding or keeping work or a job?: I do not need or want help If for any reason you need help with day-to-day activities such as bathing, preparing meals, shopping, managing finances, etc., do you get the help you need?: I don?t need any help How often do you feel lonely or isolated from those around you?: Never Do you speak a language other than Nepali at home?: Yes Does the patient want assistance with any of the above?: No Health Related Social Needs Health related social needs: housing instability, housed, with risk of homelessn ess (Z59.811) and education (Z55.6) Health related social needs details: pt doesn't need help for living PFSH All Active Problems (Updated 03/26/25 @ 12:10 by Katherine Quintanilla APRN) Transaminitis (Acute) Elevated troponin (Acute) Elevated troponin level not due myocardial infarction (Acute) Cirrhosis of liver (Chronic) HTN (hypertension) (Chronic) CHF (congestive heart failure) (Acute) Paroxysmal atrial fibrillation with RVR (Acute) Bilateral hip pain (Acute) Renal insufficiency (Chronic) Social History Smoking/Tobacco Use Status: Never Smoking risk assessment performed?: Yes Alcohol Intake: current Alcohol Intake frequency: 0-2 drinks per day Alcohol type: wine Drug use: Occasionally Substance use type: marijuana Details: not for the last 30 days Housing: house Do you feel safe at home: Yes Do you feel safe in your relationship?: Yes
--- NOTE | 2025-03-26 09:22 | W.PM.PROGNOT ---
Date of Service Date of service: 03/26/25 Time of Service: 09:22 Assessment and Plan Assessment and plan (1) Paroxysmal atrial fibrillation with RVR: Start date: 03/25/25 Status: Acute Assessment and plan: This is a 80-year-old gentleman with a history of proximal atrial fibrillation and decreased left ejection fraction diagnosed in 2021 with recent cessation of medications for heart rate control now in recurrent atrial fibrillation with rapid ventricular response and evidence of CHF. Continue newly restarted diltiazem and adjust PRN telemetry Hx of amidarone use Cardiology outpatient VS consult if not controlled -Seen in [facility] and [facility] cardiology - will attempt to records Mentioned appointment with Dr. Parada on maybe 04/01 ( he thought it was cardiology) On Dabigatran home dose (2) Elevated troponin: Status: Acute Assessment and plan: Troponins are elevated and appear to be secondary to cardiac strain from his tachycardia with patient having no ischemic changes on EKG or chest pain max at 157 from previous 148 now 139- no furhter trending at this time Most likely type II ischemia Was started on statin Lipid panel pending (3) CHF (congestive heart failure): Start date: 03/25/25 Status: Acute Assessment and plan: BNP was elevated > 20K Echo pending last LVEF in 2021 -20-25%- appearewd tohave improved s/p control of RVR - but no objective data found Continue lasix 40 mg IVP BID Labs in AM No SOB (4) HTN (hypertension): Status: Chronic Assessment and plan: Ongoing home dose losartan, might have to adjust while on diltiazem. (5) Cirrhosis of liver: Status: Chronic Assessment and plan: History of ETOH consumption Counseled re: ETOH cessation - outpatient management Consider CIWA if needed (6) Transaminitis: Status: Acute Assessment and plan: Improving Labs in AM discussed with Dr. Moore Subjective Subjective Patient reports: feels better, tolerating liquids well, tolerating a regular diet, voiding w/o difficulty and no bowel movement (last 03/26); denies still having pain, bowel movement, diarrhea, blood in stool, nausea, vomiting, shortness of breath or fever Exam Narrative Exam Narrative: 80 yo male appearing of stated age , w/o acute distress, neurologically intact, alert and oriented X4, unlabored breathing with bibasilar fine crackles R>L, trace edema 1+ to LE's R>L, heart is irregular, tele A-FIB HR 105, + murmur abdomen is non-acute, no CVA tenderness Objective Last Vital Signs Temp 36.1 C L 03/26/25 07:51 Pulse 117 H 03/26/25 07:51 Resp 18 03/26/25 07:51 BP 111/90 03/26/25 07:51 Pulse Ox 99 03/26/25 07:51 Laboratory Results - last 24 hr 03/25/25 03/25/25 03/25/25 18:18 19:40 20:58 WBC 8.03 RBC 4.90 Hgb 15.2 Hct 45.0 MCV 92 MCH 31.0 MCHC 33.8 RDW 13.6 Plt Count 246 MPV 10.1 Immature Gran % 0.5 Neutrophils % 67.1 Lymphocytes % 16.6 Monocytes % 13.8 Eosinophils % 1.1 Basophils % 0.9 Nucleated RBC % 0.0 Absolute Neutrophils 5.39 Absolute Lymphocytes 1.33 Absolute Monocytes 1.11 H Absolute Eosinophils 0.09 Absolute Basophils 0.07 PT 20.8 H INR 2.2 H APTT 54.7 H VBG Lactate Sodium 135 L Potassium 4.7 Chloride 101 Carbon Dioxide 18.9 L Anion Gap 15.1 H BUN 29 H Creatinine 1.2 Est GFR (CKD-EPI 2020) 61.90 Glucose 132 H Calcium 9.3 Magnesium 2.1 Total Bilirubin 1.3 H AST 211 H ALT 213 H Alkaline Phosphatase 223 H Troponin I 127 H* 122 H* NT-Pro-B Natriuret Pep 65051 H Total Protein 7.4 Albumin 3.6 TSH 2.08 Urine Color Urine Clarity Urine pH Ur Specific [place] Urine Protein Urine Ketones Urine Blood Urine Nitrite Urine Bilirubin Urine Urobilinogen Ur Leukocyte Esterase Urine RBC Urine WBC Ur Epithelial Cells Urine Crystals Urine Bacteria Urine Casts Urine Mucus Ur Culture Indicated? Urine Glucose Urine Opiates Screen Negative Urine Methadone Screen Negative Ur Barbiturates Screen Negative Ur Tricyclics Screen Negative Ur Amphetamines Screen Negative U Benzodiazepines Scrn Negative Urine Cocaine Screen Negative Ur THC Screen Negative Ethyl Alcohol < 3.0 COVID-19 Source Nasopharynx SARS-CoV-2 (PCR) Negative Influenza Type A (PCR) Negative Influenza Type B (PCR) Negative RSV (PCR) Negative 08/03/25/25 03/25/25 21:20 21:50 23:22 WBC RBC Hgb Hct MCV MCH MCHC RDW Plt Count MPV Immature Gran % Neutrophils % Lymphocytes % Monocytes % Eosinophils % Basophils % Nucleated RBC % Absolute Neutrophils Absolute Lymphocytes Absolute Monocytes Absolute Eosinophils Absolute Basophils PT INR APTT VBG Lactate 1.9 Sodium Potassium Chloride Carbon Dioxide Anion Gap BUN Creatinine Est GFR (CKD-EPI 2020) Glucose Calcium Magnesium Total Bilirubin AST ALT Alkaline Phosphatase Troponin I 143 H* NT-Pro-B Natriuret Pep Total Protein Albumin TSH Urine Color Yellow Urine Clarity Clear Urine pH 5.5 Ur Specific [place] 1.015 Urine Protein Negative Urine Ketones Negative Urine Blood Trace-lysed H Urine Nitrite Negative Urine Bilirubin Negative Urine Urobilinogen 0.2 Ur Leukocyte Esterase Negative Urine RBC 0-2 Urine WBC 0-2 Ur Epithelial Cells Negative Urine Crystals Negative Urine Bacteria Negative Urine Casts Negative Urine Mucus Negative Ur Culture Indicated? No Urine Glucose Negative Urine Opiates Screen Urine Methadone Screen Ur Barbiturates Screen Ur Tricyclics Screen Ur Amphetamines Screen U Benzodiazepines Scrn Urine Cocaine Screen Ur THC Screen Ethyl Alcohol COVID-19 Source SARS-CoV-2 (PCR) Influenza Type A (PCR) Influenza Type B (PCR) RSV (PCR) 03/26/25 03/26/25 03:55 07:00 WBC 7.52 RBC 4.42 Hgb 13.7 Hct 40.9 MCV 93 MCH 31.0 MCHC 33.5 RDW 13.4 Plt Count 203 MPV 10.2 Immature Gran % Neutrophils % Lymphocytes % Monocytes % Eosinophils % Basophils % Nucleated RBC % Absolute Neutrophils Absolute Lymphocytes Absolute Monocytes Absolute Eosinophils Absolute Basophils PT 16.2 H INR 1.7 H APTT VBG Lactate Sodium 137 Potassium 4.1 Chloride 102 Carbon Dioxide 21.2 Anion Gap 13.8 H BUN 30 H Creatinine 1.1 Est GFR (CKD-EPI 2020) 68.71 Glucose 100 Calcium 8.7 Magnesium 1.9 Total Bilirubin 0.9 AST 152 H ALT 185 H Alkaline Phosphatase 186 H Troponin I 148 H* 157 H* NT-Pro-B Natriuret Pep Total Protein 6.4 Albumin 3.1 L TSH Urine Color Urine Clarity Urine pH Ur Specific [place] Urine Protein Urine Ketones Urine Blood Urine Nitrite Urine Bilirubin Urine Urobilinogen Ur Leukocyte Esterase Urine RBC Urine WBC Ur Epithelial Cells Urine Crystals Urine Bacteria Urine Casts Urine Mucus Ur Culture Indicated? Urine Glucose Urine Opiates Screen Urine Methadone Screen Ur Barbiturates Screen Ur Tricyclics Screen Ur Amphetamines Screen U Benzodiazepines Scrn Urine Cocaine Screen Ur THC Screen Ethyl Alcohol COVID-19 Source SARS-CoV-2 (PCR) Influenza Type A (PCR) Influenza Type B (PCR) RSV (PCR) PAWSS Have you Been Recently Intoxicated or Drunk Within the Last 30 days?: No Have you Ever Experienced Previous Episodes of Alcohol Withdrawal?: No Have you ever Experienced Withdrawal Seizures?: No Have you ever Experienced Delirium Tremens(DT)s?: No Have you ever undergone Alcohol Rehabilitation Treatment (i.e, inpt ot outpatient treatment programs)?: No Have you ever Experienced Blackouts?: No Have you ever Combined Alcohol with other Downers within the last 90 days?: No Have you ever Combined Alcohol with any other Substance of Abuse during the last 90 days?: No Positive Blood Alcohol level on Presentation? [PCS.BAL]: No Evidence of Increased Autonomic Activity (i.e. HR>120, tremor, sweating, agitation, nausea)?: No Result: 0 Time Spent with Patient Time Spent with Patient: >50 minutes Time was spent: preparing to see the patient(eg.review tests), obtaining and/or reviewing separately otained hiistory, ordering medications,tests, procedures, referring, communicating with other health ambulatory care nurse, indepentently interpreting results, counseling the patient and care coordination
[2025-03-26 11:17] LABS: Troponin I 139 ng/L (<or=76)
[2025-03-26 12:52] LABS: Lab Add On Test DONE
[2025-03-26 13:06] LABS: Calculated LDL 33 mg/dL (<100); Cholesterol 92 mg/dL (<200); HDL Cholesterol 48 mg/dL (>or=40); Triglyceride 58 mg/dL (<150)
[2025-03-26 21:55] VITALS: BP 104/62; PULSE 107; RESP 22; TEMP 36.7; O2SAT 97
[2025-03-27 03:25] VITALS: BP 97/73; PULSE 74; RESP 18; TEMP 36.4; O2SAT 92
[2025-03-27] MEDS: dilTIAZem 60 MG TAB PO (06:08)
[2025-03-27 07:34] VITALS: BP 114/94; PULSE 64; RESP 16; TEMP 36; O2SAT 93
[2025-03-27 07:46] LABS: INR 1.4 (0.9-1.1); Prothrombin Time 13.6 sec (9.1-11.1)
[2025-03-27] MEDS: Furosemide 40 MG/4 ML VIAL IVP (08:05)
[2025-03-27] MEDS: Losartan 25 MG TAB 50 MG PO (08:05)
[2025-03-27] MEDS: Normal Saline Flush 10 ML SYR IVP (08:05)
[2025-03-27 08:12] LABS: HCT 41.8 % (40.0-50.0); HGB 14.2 g/dL (13.5-17.5); MCH 31.0 pg (27.0-33.0); MCHC 34.0 % (32.0-36.0); MCV 91 fL (80-95); MPV 10.4 fL (8.0-11.0); Platelet Count 213 10^3/uL (130-400); RBC 4.58 10^6/uL (4.36-5.78); RDW 13.7 % (11.8-14.1); RDW-SD 45.6 fL; WBC 9.33 10^3/uL (4.4-10.8)
[2025-03-27 08:14] LABS: ALT 149 U/L (16-63); AST 81 U/L (15-37); Albumin 3.1 g/dL (3.4-5.0); Alkaline Phosphatase 169 U/L (46-116); Anion Gap 13.8 mmol/L (3-11); BUN 32 mg/dL (7-18); Bilirubin, Total 1.0 mg/dL (0.2-1.0); CO2 20.2 mmol/L (21.0-32.0); Calcium 8.9 mg/dL (8.5-10.1); Chloride 102 mmol/L (98-107); Estimated GFR 61.90 (mL/min/1.73m2); Glucose 111 mg/dL (74-106); Magnesium 2.0 mg/dL (1.8-2.4); Potassium 3.7 mmol/L (3.5-5.1); Sodium 136 mmol/L (136-145); Total Protein 6.5 g/dL (6.4-8.2)
--- NOTE | 2025-03-27 09:14 | W.PM.PROGNOT ---
Date of Service Date of service: 03/27/25 Time of Service: 09:14 Objective Last Vital Signs Temp 36 C L 03/27/25 07:34 Pulse 64 03/27/25 07:34 Resp 16 03/27/25 07:34 BP 114/94 H 03/27/25 07:34 Pulse Ox 93 03/27/25 07:34 Laboratory Results - last 24 hr 03/26/25 03/26/25 03/27/25 10:45 12:51 06:55 WBC RBC Hgb Hct MCV MCH MCHC RDW Plt Count MPV PT 13.6 H INR 1.4 H Sodium 136 Potassium 3.7 Chloride 102 Carbon Dioxide 20.2 L Anion Gap 13.8 H BUN 32 H Creatinine 1.2 Est GFR (CKD-EPI 2020) 61.90 Glucose 111 H Calcium 8.9 Magnesium 2.0 Total Bilirubin 1.0 AST 81 H ALT 149 H Alkaline Phosphatase 169 H Troponin I 139 H* Total Protein 6.5 Albumin 3.1 L Triglycerides 58 Total Cholesterol 92 LDL Cholesterol, Calc 33 HDL Cholesterol 48 Add-On Test Request DONE 03/27/25 08:05 WBC 9.33 RBC 4.58 Hgb 14.2 Hct 41.8 MCV 91 MCH 31.0 MCHC 34.0 RDW 13.7 Plt Count 213 MPV 10.4 PT INR Sodium Potassium Chloride Carbon Dioxide Anion Gap BUN Creatinine Est GFR (CKD-EPI 2020) Glucose Calcium Magnesium Total Bilirubin AST ALT Alkaline Phosphatase Troponin I Total Protein Albumin Triglycerides Total Cholesterol LDL Cholesterol, Calc HDL Cholesterol Add-On Test Request PAWSS Have you Been Recently Intoxicated or Drunk Within the Last 30 days?: No Have you Ever Experienced Previous Episodes of Alcohol Withdrawal?: No Have you ever Experienced Withdrawal Seizures?: No Have you ever Experienced Delirium Tremens(DT)s?: No Have you ever undergone Alcohol Rehabilitation Treatment (i.e, inpt ot outpatient treatment programs)?: No Have you ever Experienced Blackouts?: No Have you ever Combined Alcohol with other Downers within the last 90 days?: No Have you ever Combined Alcohol with any other Substance of Abuse during the last 90 days?: No Positive Blood Alcohol level on Presentation? [PCS.BAL]: No Evidence of Increased Autonomic Activity (i.e. HR>120, tremor, sweating, agitation, nausea)?: No Result: 0
--- NOTE | 2025-03-27 09:18 | DSE_ITS ---
Date of service: 03/27/25 Time of Service: 13:48 DS: Diagnosis Discharge Diagnosis (1) Paroxysmal atrial fibrillation with RVR: Status: Acute (2) Elevated troponin: Status: Acute (3) CHF (congestive heart failure): Status: Acute (4) HTN (hypertension): Status: Chronic (5) Cirrhosis of liver: Status: Chronic (6) Transaminitis: Status: Acute Discharge Plan Disposition Patient Disposition: Home W/Home Health Services Condition: Improving Discharge Details Reason For Visit: PAF with IVR, CHF, Cirrhosis Admit Date/Time: 03/25/25 20:42 Admit Provider: Satnam Laboy Attending Provider: Satnam Laboy Primary Care Provider: James Guzman Hospital Course Hospital Course: This 80-year-old male patient residing in [place] for part of the year with a history of ETOH use, HTN, A-fib on dabigatran but is no longer on diltiazem nor amiodarone presented to the ED for evaluation of with several weeks of shortness of breath and feeling his heart beating fast and irregularly. A-fib with RVR as per EKG in the ED treated with IVP diltiazem followed by an [place]. [place] [address], positive tropinin w/o chest pain or coronary occlusion findings on EKG - most likley type II ischemia, mildly elevated LFTs and coags in the setting of ETOH use and anticoagulation. The patient received IV lasix in the ED and was admitted to the medical surgical floor for CHF exacerbation and NSTEMI type II in the setting of atrial fibrillation with rapid ventricular response. Records from [place] obtained from 08/2024. Pharmacological regimen included losartan, amiodarone and metoprolol succinate and BID pradaxa; at the time records mentioned an LVEF of 55%. Echocardiogram done on 03/26/25 showed an LVEF around 20 % with global hypokinesis. Cardiology consult completed with recommendation to resume metoprolol succinate and progression to GDMT as an outpatient. Amiodarone not indicated at this time as Pradaxa was only given daily; now ordered twice a day. Jardiance added to regimen. Discussion with Dr. James Guzman confirmed appointment early next week ( 04/01). Rate controlled and hemodynamic stability maintained this PM. The patient will be discharged home and transitioned to oral lasix. Cardiology referral and outpatient follow-up ordered. Home health physical therapy recommended and nursing for assistance with new medicine regimen management. Discussed with Dr. Gutiérrez Recommendations for Follow Up Recommended tests to be ordered by follow up provider: CMP Home Meds and New Rx's Prescriptions: New atorvastatin 40 mg Tablet 40 mg PO QPM Qty: 30 0RF dabigatran etexilate [Pradaxa] 75 mg Capsule 150 mg PO BID Qty: 120 0RF docusate sodium [Colace] 100 mg Capsule 100 mg PO TID PRN PRNQty: 30 0RF acetaminophen 325 mg Tablet 650 mg PO Q8H PRN PRNQty: 30 0RF furosemide 40 mg Tablet 40 mg PO BID@0830,1600 Qty: 60 0RF metoprolol succinate 50 mg Tablet Extended Release 24 Hr 50 mg PO DAILY Qty: 30 0RF Jardiance 10 mg tablet 10 mg PO DAILY Qty: 30 0RF Continued losartan 25 mg tablet 50 mg PO DAILY Discontinued diltiazem HCl 360 mg capsule,extended release 24 hr 360 mg PO DAILY Qty: 90 0RF dabigatran etexilate 150 mg capsule 150 mg PO DAILY Discharge Instructions Referrals: Odette David MD [ [facility] STAFF PHYSICIAN, Cardiology] Referral Note: Seen inpatient today - referral outpatient James Guzman DO [Primary Care Provider, Medicine] - 04/03/25 2:00 pm Activity:: Activity as Tolerated Equipment/Supplies:: cane Diet:: haert healthy Discharge Orders Discharge Orders: Discharge Order (Routine); Ordered 03/27/25 Ordered By: Katherine Quintanilla Other Ambulatory Orders: Comprehensive Metabolic Panel (Routine) Timeframe: [id number] Facility: [facility] - Location: Laboratory Outpatient - [facility] Ordered By: Katherine Quintanilla DS: Summary Time Spent with Patient providing and/or coordinating discharge services: Greater than 30 minutes Status at Discharge Functional status at discharge: uses cane/walker Overall status at discharge: patient is progressing back to baseline Mental Status: mental status grossly normal Speech and Movement: speech and movement normal Mood: congruent mood Affect: normal affect Quality:SDOH Health Related Social Needs: Health related social needs risk of homeless education Health related social needs details pt doesn't need he lp for living Health related social needs details: pt doesn't need help for living Exam Narrative Exam Narrative: 80 yo male appearing of stated age , w/o acute distress, neurologically intact, alert and oriented X4, unlabored breathing with bibasilar fine crackles R>L, trace edema LE's R>L, heart is irregular, tele A-FIB HR 64-94, + murmur abdomen is non-acute, no CVA tenderness Psych Mental Status: mental status grossly normal Speech and Movement: speech and movement normal Mood: congruent mood Affect: normal affect DS: Data Vitals/I&O Vitals and I&O: Vital Signs Temperature 36 C L 03/27/25 07:34 Temperature Source Temporal Artery Scan 03/27/25 07:34 Pulse 64 03/27/25 07:34 Pulse Rhythm Regular 03/25/25 21:41 Pulse 93 H 03/25/25 21:15 Respiratory Rate 16 03/27/25 07:34 Respiratory Effort Normal, Non-Labored 03/25/25 21:41 Respiratory Depth Normal 03/25/25 21:41 Respiratory Pattern Normal 03/25/25 21:41 Blood Pressure 114/94 H 03/27/25 07:34 Blood Pressure Mean 100 03/27/25 07:34 Blood Pressure Position Sitting 03/25/25 18:24 Pulse Oximetry 93 03/27/25 07:34 Oxygen Delivery Method Room Air 03/27/25 07:34 Oxygen Flow Rate 0 03/27/25 07:34 Pain Level 0 03/27/25 03:25 Comment PT asleep refused vitals. 03/26/25 03:26 Intake & Output 03/26/25 03/26/25 03/27/25 11:59 23:59 11:59 Intake Total 250 / 250 Output Total 875 / 1085 210 / 1085 Balance -875 / -1085 -210 / -1085 250 / 250 Intake: Oral 250 / 250 Output: Urine 875 / 1085 210 / 1085 Other: Urine Color Yellow Light Cindy Urine Appearance Clear Clear Urine Odor None Strong Data Completed and Pending Labs on day of discharge: Labs from last 24 hours 03/27/25 03/27/25 03/26/25 08:05 06:55 12:51 WBC 9.33 RBC 4.58 Hgb 14.2 Hct 41.8 MCV 91 MCH 31.0 MCHC 34.0 RDW 13.7 Plt Count 213 MPV 10.4 PT 13.6 H INR 1.4 H Sodium 136 Potassium 3.7 Chloride 102 Carbon Dioxide 20.2 L Anion Gap 13.8 H BUN 32 H Creatinine 1.2 Est GFR (CKD-EPI 2020) 61.90 Glucose 111 H Calcium 8.9 Magnesium 2.0 Total Bilirubin 1.0 AST 81 H ALT 149 H Alkaline Phosphatase 169 H Troponin I Total Protein 6.5 Albumin 3.1 L Triglycerides Total Cholesterol LDL Cholesterol, Calc HDL Cholesterol Add-On Test Request DONE 03/26/25 10:45 WBC RBC Hgb Hct MCV MCH MCHC RDW Plt Count MPV PT INR Sodium Potassium Chloride Carbon Dioxide Anion Gap BUN Creatinine Est GFR (CKD-EPI 2020) Glucose Calcium Magnesium Total Bilirubin AST ALT Alkaline Phosphatase Troponin I 139 H* Total Protein Albumin Triglycerides 58 Total Cholesterol 92 LDL Cholesterol, Calc 33 HDL Cholesterol 48 Add-On Test Request PFSH All Active Problems (Updated 03/27/25 @ 09:21 by Odette David MD) Cardiomyopathy (Acute) Transaminitis (Acute) Elevated troponin (Acute) Elevated troponin level not due myocardial infarction (Acute) Cirrhosis of liver (Chronic) HTN (hypertension) (Chronic) CHF (congestive heart failure) (Acute) Paroxysmal atrial fibrillation with RVR (Acute) Bilateral hip pain (Acute) Renal insufficiency (Chronic) Social History Smoking/Tobacco Use Status: Never Smoking risk assessment performed?: Yes Alcohol Intake: current Alcohol Intake frequency: 0-2 drinks per day Alcohol type: wine Drug use: Occasionally Substance use type: marijuana Details: not for the last 30 days Housing: house Do you feel safe at home: Yes Do you feel safe in your relationship?: Yes Time Spent with Patient Time Spent with Patient: >85 minutes Time was spent: preparing to see the patient(eg.review tests), obtaining and/or reviewing separately otained hiistory, ordering medications,tests, procedures, referring, communicating with other health manager of care, indepentently interpreting results, counseling the patient and care coordination
--- NOTE | 2025-03-27 09:18 | CCONE_ITS ---
Date of service: 03/27/25 Time of Service: 09:18 Assessment and Plan Assessment and plan (1) Paroxysmal atrial fibrillation with RVR: Status: Acute Assessment and plan: Patient's heart rate is currently controlled. In the setting of left ventricular dysfunction he should not be treated with diltiazem for rate control. Metoprolol succinate would be preferred His dabigatran should also be ordered appropriately at 150 mg twice daily for stroke prevention. Giving amiodarone again could be considered but should probably wait until he has been fully anticoagulated again. For that reason I would not recommend cardioversion either (2) Cardiomyopathy: Status: Acute Assessment and plan: It is presumed this is again tachycardia mediated LV dysfunction. It should improve with heart rate control or jehovah's witness of sinus rhythm. 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 A couple of years ago he had LV dysfunction in the setting of atrial fibrillation. Reportedly he was treated with a rhythm control strategy with amiodarone and his ventricular function recovered. All of his care in this area was in [place]. Patient is a poor historian. He reports amiodarone was stopped sometime this past spring. He came to [place] where they generally spend the summer as they owned property at [facility]. He has been short of breath for a few weeks. He came to the hospital where he was again in atrial fibrillation, rate was elevated. Heart rate is now better He has been anticoagulated with dabigatran 150 mg twice a day. For unclear reasons he is receiving it once a day here in the hospital He had an echocardiogram updated. His EF is about 25%. There were concerns for hemodynamically significant aortic stenosis but the study is technically suboptimal Patient is currently fairly comfortable. He is not overtly short of breath PFSH All Active Problems (Updated 03/27/25 @ 09:21 by Odette David MD) Cardiomyopathy (Acute) Transaminitis (Acute) Elevated troponin (Acute) Elevated troponin level not due myocardial infarction (Acute) Cirrhosis of liver (Chronic) HTN (hypertension) (Chronic) CHF (congestive heart failure) (Acute) Paroxysmal atrial fibrillation with RVR (Acute) Bilateral hip pain (Acute) Renal insufficiency (Chronic) Social History Smoking/Tobacco Use Status: Never Smoking risk assessment performed?: Yes Alcohol Intake: current Alcohol Intake frequency: 0-2 drinks per day Alcohol type: wine Drug use: Occasionally Substance use type: marijuana Details: not for the last 30 days Housing: house Do you feel safe at home: Yes Do you feel safe in your relationship?: Yes Exam Const Other: Overweight looks younger than stated age no acute distress Neck Other: Unable to assess JVP. Carotid pulsations are normal in upstroke and volume Resp Other: Grossly clear Cardio Other: Irregularly irregular Extrem Other: 1+ edema Results Last Vital Signs Temp 36 C L 03/27/25 07:34 Pulse 64 03/27/25 07:34 Resp 16 03/27/25 07:34 BP 114/94 H 03/27/25 07:34 Pulse Ox 93 03/27/25 07:34 Labs 03/27/25 08:05 03/27/25 06:55 Labs: Laboratory Results - last 24 hr 03/26/25 03/26/25 03/27/25 10:45 12:51 06:55 WBC RBC Hgb Hct MCV MCH MCHC RDW Plt Count MPV PT 13.6 H INR 1.4 H Sodium 136 Potassium 3.7 Chloride 102 Carbon Dioxide 20.2 L Anion Gap 13.8 H BUN 32 H Creatinine 1.2 Est GFR (CKD-EPI 2020) 61.90 Glucose 111 H Calcium 8.9 Magnesium 2.0 Total Bilirubin 1.0 AST 81 H ALT 149 H Alkaline Phosphatase 169 H Troponin I 139 H* Total Protein 6.5 Albumin 3.1 L Triglycerides 58 Total Cholesterol 92 LDL Cholesterol, Calc 33 HDL Cholesterol 48 Add-On Test Request DONE 03/27/25 08:05 WBC 9.33 RBC 4.58 Hgb 14.2 Hct 41.8 MCV 91 MCH 31.0 MCHC 34.0 RDW 13.7 Plt Count 213 MPV 10.4 PT INR Sodium Potassium Chloride Carbon Dioxide Anion Gap BUN Creatinine Est GFR (CKD-EPI 2020) Glucose Calcium Magnesium Total Bilirubin AST ALT Alkaline Phosphatase Troponin I Total Protein Albumin Triglycerides Total Cholesterol LDL Cholesterol, Calc HDL Cholesterol Add-On Test Request
--- NOTE | 2025-03-27 10:08 | CMDISCH_ITS ---
Date of service: 03/27/25 Time of Service: 10:08 LACE Index Scoring Tool Questions: Length of Stay (in days): 2 Was the patient admitted via the E.D.?: Yes Comorbidities: Congestive Heart Failure and Liver or Renal Disease E.D. Visits: 1 Answers: Total Score: 11 Risk of Readmission: High Risk Care Management Discharge Plan Reason for Hospitalization: afib with RVR, CHF Discharge Plan: German is discharged home today with no new services. He will f/u with his PCP at a previously scheduled appt on 04/03 at 2pm. German will transport home in a private vehicle. Patient/Family Education Needs: Review of discharge instructions, activity, limitations, and discuss Ask me 3. SDOH Health Related Social Needs: Health related social needs risk of homeless education Health related social needs details pt doesn't need he lp for living Health related social needs details: pt doesn't need help for living Referrals and interventions: Client owns his own home and several rental properties
--- NOTE | 2025-03-27 10:26 | PT.INIE ---
PT Notes Visit Reasons: PAF with IVR, CHF, Cirrhosis Physical Therapy Inpatient Initial Evaluation Date: 03/27/2025 Referring Doctor: Katherine Quintanilla NP PT Orders: PT CONSULT: Safety Consult for D/C Precautions:Fall risk, IV access, Standard, Telemetry Patient Profile/Admitting Diagnosis: Pt presented to the ED on 03/25 with SOB . Pt diagnosed with pAFib with RVR. Pt was originally dx in 2021 with Afib and had been weaned off his cardiac meds recently with out issue until January of this year. The patient was admitted for continued observation on telemetry while advancing diltiazem, continue Xarelto and losartan and will be treated for CHF with Lasix 40 mg IV twice daily. Echocardiogram: EF 25%, Cardiology consult. The patient should follow-up with a local compressor station chief engineer with plans of seeing physicians at [facility] for planned hip replacement in the near future. PMHX: pAfib, Cardiomyopathy, Transaminitis, Cirrhosis of liver, CHF, B hip pain, Renal Insufficiency. Social History/Home Situation: Pt resides in [place] as primary residence , He has been in [place] since January staying at [facility], [place]. Home in [place] has 3 GINA with Right rail and is 1 story. He amb short distances with 2 canes while awaiting THR . He drives and is independent with ADL. He resides with his who is able to assist as needed. Equipment Owned/DME: 2 canes ( single point and hurry-cane tipped) , FWW, manual w/c and motorized w/c. Subjective: Pt reports he has put off having the B LLAIT for over a year and now he is having increased difficulty with ambulation d/t pain. He states he utilizes the canes and/or w/c indoor in open spaces. He reports he uses the motorized w/c outdoor at this time. He reports he gets out of his truck and gets onto motorized w/c to get to the stairs. He state the stairs. Objective: [] General Observation: male seated at EOB BLE 1+pitting edema knees to toes noted. Mental Status: A+Ox 3 some word finding deficits noted, able to follow instructions, agreeable to participate in session Pain: B hips R>L 8/10 with any WB , 5/10 with ROM, and 0/10 at rest. ROM: [] BUE: WNL RLE: hip flexion 90 degrees, hip abduction 5 degrees,hip IR to neutral, hip extension -5 degrees, knee 0- 90 degrees, ankle DF WNL LLE: hip flexion 93 degrees, hip abduction 10 degrees,hip IR to neutral, hip extension -5 degrees, knee 0- 90 degrees, ankle DF WNL Strength:No resistance d/t Cardiac status BUE: able to move all joints Against gravity ; grasp strong Right Lower Extremity:hip flexion 3-/5,hip abduction 2-/5, hip extension 3-/5 knee extension >/= to 3/5, ankle >/= to3/5 Left Lower Extremity: [hip flexion 3/5,hip abduction 2/5, hip extension 3-/5 knee extension >/= to 3/5, ankle >/= to3/5 Sensation: intact Bed Mobility/Transfers: [] Supine to sit SBA with increased time d/t B hip pain (+) crepitus Sit to stand SBA with increased time d/t B hip pain (+) crepitus Stand to sit SBA with increased time d/t B hip pain (+) crepitus Bed to chair SBA with 2 canes Gait: 12 feet with SBA 2 canes, 4 point pattern with impaired B knee flexion Balance: [] Static Sitting: Normal Dynamic Sitting: good above knee height d/t B hip pain Static Standing: Good with B UE support Dynamic Standing:Fair with UE support Special Tests: [] Mobility Limitations Standardized Measure [] [facility] AM-PAC 6 clicks Basic Mobility Inpatient Short Form: [] Raw Score: 19 CMS Score: 41.77% deficit Informed Consent/Education: Patient instructed in purpose of PT consult. Assessment: Pt is a 80 yo male with significant pain, poor functional activity tolerance and impairments of B hips limiting all aspects of functional mobility. Pt with severe crepitus with weight bearing B hips. Patient is limited in his distance of ambulation to less than 15 feet at this time due to severity of pain in bilateral hips. Patient reports he would be utilizing a manual wheelchair in areas within his home and limit his distance of walking. Patient presents with clinical signs and symptoms consistent with current/admitting diagnoses that have resulted to mobility limitations, gait instability, generalized weakness, and impairment of motor control as demonstrated by the following impairment level findings: 1. Decreased strength to B LE major muscle groups 2. Impaired standing balance 3. Limitation of joint range of motion in B hips 4. Pain B Hips 5. Impaired functional Activity tolerance Impairments are contributing to the following functional limitations: 1. Inability to safely ambulate without assistive device 2. Increase completion time for mobility ADL performance 3. Increased fall risk 4. Difficulty performing transfers d/t pain B hips 5. Difficulty performing Bed mobility d/t pain B hips 6. difficulty performing stairs safely Patient is assessed as a moderate complexity based on the following: History: 80-year-old male with impairment level findings, functional limitations, and past medical history as indicated above Examination: Demonstrable impairment in strength, balance, and mobility level with underlying impairments and functional limitations as documented above Presentation: evolving Decision Making: moderate Goals: N/A. pt d/c to home after evaluation Plan of Care/Treatment Plan: N/A. PT evaluation only DISCHARGE RECOMMENDATIONS: Home with HHPT and use of FWW vs 2 canes TREATMENT CODE/TIME: 27790/ [id number] Thank you for the opportunity to participate in the care of this patient. Slime Quinones, PT [facility]
[2025-03-27 10:45] VITALS: BP 111/66; PULSE 80
[2025-03-27] MEDS: Metoprolol CR 50 MG TABCR PO (10:48)
--- NOTE | 2025-03-27 14:56 | PDOC.HHF2F ---
Home Health Referral Home Health Orders Clinical synopsis of why skilled professionals are needed: This 80-year-old male patient residing in [place] for part of the year with a history of ETOH use, HTN, A-fib on dabigatran but is no longer on diltiazem nor amiodarone presented to the ED for evaluation of with several weeks of shortness of breath and feeling his heart beating fast and irregularly. A-fib with RVR as per EKG in the ED treated with IVP diltiazem followed by an [place]. [place] [address], positive tropinin w/o chest pain or coronary occlusion findings on EKG - most likley type II ischemia, mildly elevated LFTs and coags in the setting of ETOH use and anticoagulation. The patient received IV lasix in the ED and was admitted to the medical surgical floor for CHF exacerbation and NSTEMI type II in the setting of atrial fibrillation with rapid ventricular response. Records from [place] obtained from 08/2024. Pharmacological regimen included losartan, amiodarone and metoprolol succinate and BID pradaxa; at the time records mentioned an LVEF of 55%. Echocardiogram done on 03/26/25 showed an LVEF around 20 % with global hypokinesis. Cardiology consult completed with recommendation to resume metoprolol succinate and progression to GDMT as an outpatient. Amiodarone not indicated at this time as Pradaxa was only given daily; now ordered twice a day. Jardiance added to regimen. Discussion with Dr. James Guzman confirmed appointment early next week ( 04/01). Rate controlled and hemodynamic stability maintained this PM. The patient will be discharged home and transitioned to oral lasix. Cardiology referral and outpatient follow-up ordered. Home health physical therapy recommended and nursing for assistance with new medicine regimen management. Discussed with Dr. Gutiérrez Registered Nurse: Check all that apply Assess for exacerbation of medical condition, instruct patient/caregivers on signs and symptoms to report for early detection: Ordered Encounter Date and Reason: I certify that a FTF encounter for this patient was performed on March 27, 2025 and that such encounter was related to the primary reason the patient requires home health services. The encounter was conducted in the following manner: By me as the certifying physician, DIRECTOR PRODUCT MANAGEMENT, PA or By an inpatient physician, DIRECTOR PRODUCT MANAGEMENT or PA during an inpatient stay who communicated findings to me, Certification And Authentication I certify that I composed the above information based on my clinical judgment relating to this patient's medical condition and, if applicable, clinical findings communicated to me by the NPP or inpatient physician who performed the FTF encounter. Name of Provider that will be monitoring home health services: James Guzman
[2025-03-27 19:06] LABS: Lab Add On Test DONE
[2025-03-27 19:18] LABS: Hemoglobin A1C 5.5 % (<5.7)
== END 2025-03-27 16:09 | disposition home health service (06) | DRG 280 ==
LOC: ER 20:49 → MS 21:25
PROVIDERS: Admitting Provider Family Medicine; Emergency Provider Emergency Medicine; PCP Family Medicine; Responsible Provider Nurse Practitioner Acute Care; Visit Provider Family Medicine
DX: I48.0 Paroxysmal atrial fibrillation (principal); I50.23 Acute on chronic systolic (congestive) heart failure; I42.9 Cardiomyopathy, unspecified; R74.01 Elevation of levels of liver transaminase levels; I21.A1 Myocardial infarction type 2; I13.0 Hypertensive heart and chronic kidney disease with heart failure and stage 1 through stage 4 chronic kidney disease, or unspecified chronic kidney disease; N18.9 Chronic kidney disease, unspecified; Z79.01 Long term (current) use of anticoagulants; M25.552 Pain in left hip; M25.551 Pain in right hip; F12.90 Cannabis use, unspecified, uncomplicated; I35.8 Other nonrheumatic aortic valve disorders; I08.3 Combined rheumatic disorders of mitral, aortic and tricuspid valves; F10.90 Alcohol use, unspecified, uncomplicated; K74.60 Unspecified cirrhosis of liver
CPT/HCPCS: 00123; 36415; 80053; 80061; 80307; 85027; 87637; 93005; 96374; 96375; 97162; 99222; 99291; 71045; 80320; 81003; 81015; 83036; 83605; 83735; 83880; 84443; 84484; 85025; 85610; 85730; 93010; 93306; 99223; 99232; 99239; J1938; J3490

== ENCOUNTER → 2025-03-27 07:58 | Outpatient (BNVA) | payer MEDICARE, BC, SELFPAY | PROVIDERS: PCP Family Medicine; Referring Provider Family Medicine; Visit Provider Internal Medicine Cardiovascular Disease ==